=== PATIENT | male | born 1945 | race Caucasian/White ===

== ENCOUNTER 2017-11-03 09:30 | Inpatient (IN) | payer OTHER, MEDICARE ==
[~2017-11-03] VITALS: Ht 171.4 cm; Wt 113.6 kg
[2017-11-03] VITALS (11 sets, daily range): BP systolic 107–167; BP diastolic 65–96
[~2017-11-03 09:30] MED LIST: ASPI-611 PO; CHOL100044 PO; FERR325T32 PO; LEVO150T PO; LISI2.5T2 PO; LORA10TA7 PO; MULT-1085 PO; OMEP20TA5 PO; SIMV10TA6 PO
[2017-11-03 10:16] LABS: POTASSIUM 4.4 MMOL/L (3.5-5.1)
[2017-11-03 10:20] LABS: BASOPHILS # (AUTO) 0.1 X10'3 (0-0.2); BASOPHILS % (AUTO) 0.6 % (0-1); EOSINOPHILS # (AUTO) 0.2 X10'3 (0-0.9); HEMATOCRIT 51.7 % (42.0-52.0); HEMOGLOBIN 16.8 g/dl (14.0-17.9); LYMPHOCYTES # (AUTO) 2.3 X10'3 (1.1-4.8); LYMPHOCYTES % (AUTO) 22.3 % (21-51); MEAN CORPUSCULAR HGB CONC 32.6 % (33.0-36.5); MONOCYTES # (AUTO) 0.7 X10'3 (0-0.9); NEUTROPHILS # (AUTO) 7.2 X10'3 (1.8-7.7); NEUTROPHILS % (AUTO) 68.1 % (42-75); PLATELET COUNT 288 X10'3 (140-440); RED CELL DISTRIBUTION WIDTH 14.8 % (11.5-14.5); WHITE BLOOD COUNT 10.5 X10'3 (4.5-11.0)
[2017-11-03] MEDS ORDERED: heparin 10,000 units/1 ML INJ IV PRN (10:45)
[2017-11-03] MEDS ORDERED: heparin 10,000 units/1 ML INJ IV ONE ×2 (10:45→10:55)
[2017-11-03 10:53] LABS: ALANINE AMINOTRANSFERASE 51 U/L (12-78); MAGNESIUM 1.9 MG/DL (1.5-2.4)
[2017-11-03 11:05] LABS: PARTIAL THROMBOPLASTIN TIME 28 SECONDS (22-32); PROTHROMBIN TIME 10.8 SECONDS (9.0-12.0)
[2017-11-03] MEDS ORDERED: regadenoson 0.4mg/5ml syringe IV ONE (11:20)
[2017-11-03] MEDS ORDERED: aminophylline 250mg/10ml inj. IV PRN (11:20)
[2017-11-03] MEDS ORDERED: HYDROcodone/acetaminophen 10/325mg tab PO PRN ×2 (11:20→18:45)
[2017-11-03] MEDS ORDERED: magnesium 2GM in 50ml NS 50 ML IV PRN (11:20)
[2017-11-03] MEDS ORDERED: metoprolol tartrate 1mg/ml inj IV PRN (11:20)
[2017-11-03] MEDS ORDERED: mag hydrox/Alum hydrox/simeth 30ml oral suspension PO PRN (11:20)
[2017-11-03] MEDS ORDERED: magnesium 4gm in 100ml NS 100 ML IV PRN (11:20)
[2017-11-03] MEDS ORDERED: ondansetron/PF 4mg/2ml inj IV PRN ×2 (11:20→18:45)
[2017-11-03] MEDS ORDERED: magnesium hydroxide 30ml (MOM) UD suspension PO PRN (11:20)
[2017-11-03] MEDS ORDERED: nitroGLYCERIN 0.4mg SUBLingual tab SL PRN ×3 (11:20→18:45)
[2017-11-03] MEDS: K and/or MAG REPLACEMENT MC SCH (11:20)
[2017-11-03] MEDS ORDERED: acetaminophen 325mg tablet PO PRN ×2 (11:20)
[2017-11-03] MEDS ORDERED: potassium Cl 20 mEq SR tablet PO PRN ×2 (11:20)
[2017-11-03] MEDS ORDERED: magnesium Cl slow-release 64mg tablet PO PRN (11:20)
[2017-11-03] MEDS ORDERED: potassium Cl 40MEQ/NS 500ml 500 ML IV PRN ×2 (11:20)
[2017-11-03] MEDS ORDERED: HYDROcodone/acetaminophen 5mg/325mg tablet PO PRN ×2 (11:20→18:45)
[2017-11-03 11:26] LABS: ALBUMIN/GLOBULIN RATIO 1.1 (1.1-1.5)
[2017-11-03 11:27] LABS: CHLORIDE 105 MMOL/L (99-107); GLUCOSE 139 MG/DL (70-104); SODIUM 141 MMOL/L (135-145)
[2017-11-03 11:28] LABS: ALBUMIN 3.9 G/DL (3.4-5.0); ANION GAP 10 (8-16); BILIRUBIN,TOTAL 0.6 MG/DL (0.1-1.0); BLOOD UREA NITROGEN 15 MG/DL (7-18); BUN/CREATININE RATIO 11.8 (5.4-32.0); CALCIUM 9.6 MG/DL (8.5-10.1); CREATININE 1.27 MG/DL (0.60-1.10); TOTAL PROTEIN 7.5 G/DL (6.4-8.2); eGFR 56 ML/MIN
[2017-11-03 11:29] LABS: ALKALINE PHOSPHATASE 80 IU/L (46-116); ASPARTATE AMINO TRANSFERASE 20 U/L (10-37)
[2017-11-03] MEDS: normal saline 1000ml 1,000 ML IV SCH (11:29)
[2017-11-03 11:48] LABS: CHOL/HDL RATIO 7.2 (0.00-4.99); CHOLESTEROL 194 MG/DL (0-200); HDL CHOLESTEROL 27 MG/DL (35-60); LDL CHOLESTEROL 129 MG/DL (50-100); TRIGLYCERIDES 313 MG/DL (20-135)
[2017-11-03] MEDS: metoprolol tartrate 25mg tablet PO SCH ×2 (11:50→18:50)
[2017-11-03] MEDS ORDERED: heparin 1,000 UNITS/NS 500ml 500 ML IV SCH (11:55)
[2017-11-03] MEDS ORDERED: midazolam 2 mg/2 ml injection ONE (16:27)
[2017-11-03] MEDS ORDERED: fentaNYL/PF 50MCG/1 ML 2ML syringe ONE (16:27)
[2017-11-03] MEDS ORDERED: LIDOcaine 1%/PF (10mg/ml) 5ml vial ONE (16:28)
[2017-11-03] MEDS ORDERED: IOHEXOL 350 MG/ML 150 ML injection IV ONE (16:28)
[2017-11-03 17:05] LABS: PARTIAL THROMBOPLASTIN TIME 34 SECONDS (22-32)
[2017-11-03] MEDS ORDERED: proCHLORperazine 10 MG/2 ml inj IV PRN (18:45)
[2017-11-03] MEDS ORDERED: OXAZEpam 15mg capsule PO PRN (18:45)
[2017-11-03] MEDS: nitroGLYCERIN 0.4mg SUBLingual tab SL PRN (19:35)
[2017-11-03] MEDS: lisinopril 2.5mg tablet PO SCH (20:52)
[2017-11-03] MEDS: pantoprazole 40mg Tablet.DR PO SCH (20:52)
[2017-11-03] MEDS: atorvastatin 10mg tablet PO SCH (20:52)
[2017-11-03] MEDS ORDERED: temazepam 15mg capsule PO PRN (21:00)
[2017-11-04] VITALS (12 sets, daily range): BP systolic 96–121; BP diastolic 56–83
[2017-11-04] MEDS ORDERED: albuterol 2.5 MG/3 ML nebule ONE (00:47)
[2017-11-04] MEDS ORDERED: albuterol 2.5 MG/3 ML nebule NEB ONE (00:55)
[2017-11-04 01:20] LABS: ABG BASE EXCESS -2.1 mmol/L (-2.0-3.0); ABG OXYGEN SATURATION 95.5 % (95-98); ABG PCO2 (T) 36.9 mmHg (35.0-48.0); ABG PH (T) 7.396 (7.350-7.450); ABG PO2 (T) 79.3 mmHg (83-108); ALLEN'S TEST Positive; FCOHb 1.1 % (0.5-1.5); FMetHb 0.2 % (0.3-1.12); FO2Hb 94.3 % (94-100); PATIENT TEMPERATURE 37.3; RESPIRATORY RATE (OBSERVED) 16 b/min
[2017-11-04] MEDS: normal saline 1000ml 1,000 ML IV SCH ×2 (01:34→03:53)
[2017-11-04] MEDS: nitroGLYCERIN 0.4mg SUBLingual tab SL PRN ×3 (02:08→17:23)
[2017-11-04 02:58] LABS: HEMATOCRIT 48.7 % (42.0-52.0); HEMOGLOBIN 15.4 g/dl (14.0-17.9); MEAN CORPUSCULAR HEMOGLOBIN 27.6 PG (27.0-31.0); MEAN CORPUSCULAR HGB CONC 31.7 % (33.0-36.5); MEAN PLATELET VOLUME 8.5 FL (7.4-10.4); PLATELET COUNT 244 X10'3 (140-440); RED BLOOD COUNT 5.59 X10'6 (4.70-6.10); RED CELL DISTRIBUTION WIDTH 14.6 % (11.5-14.5); WHITE BLOOD COUNT 11.5 X10'3 (4.5-11.0)
[2017-11-04 03:10] LABS: ALBUMIN 3.5 G/DL (3.4-5.0); ANION GAP 10 (8-16); BLOOD UREA NITROGEN 17 MG/DL (7-18); BUN/CREATININE RATIO 16.8 (5.4-32.0); CALCIUM 8.5 MG/DL (8.5-10.1); CHLORIDE 104 MMOL/L (99-107); CREATININE 1.01 MG/DL (0.60-1.10); GLUCOSE 110 MG/DL (70-104); MAGNESIUM 1.7 MG/DL (1.5-2.4); POTASSIUM 4.2 MMOL/L (3.5-5.1); SODIUM 139 MMOL/L (135-145); eGFR 73 ML/MIN
[2017-11-04 03:11] LABS: TROPONIN I 0.84 NG/ML (0.0-0.05)
[2017-11-04] MEDS: K and/or MAG REPLACEMENT MC SCH (06:43)
[2017-11-04] MEDS ORDERED: enoxaparin 40mg/0.4ml syringe SQ SCH (08:00)
[2017-11-04] MEDS ORDERED: aspirin 81mg tab.chew PO SCH (08:30)
[2017-11-04] MEDS ORDERED: aspirin 325mg tablet PO SCH (08:30)
[2017-11-04] MEDS ORDERED: MESSAGE TO NURSING PO ONE ×3 (09:05)
[2017-11-04] MEDS: levoTHYROXINE 75mcg tablet PO SCH (10:01)
[2017-11-04] MEDS: metoprolol tartrate 25mg tablet PO SCH ×2 (10:01→20:00)
[2017-11-04 17:05] LABS: TROPONIN I 0.85 NG/ML (0.0-0.05)
[2017-11-04] MEDS ORDERED: nitroGLYCERIN-Tridil 50MG/D5W 250 ML IV SCH (17:30)
[2017-11-04 19:20] LABS: MAGNESIUM 1.9 MG/DL (1.5-2.4); POTASSIUM 4.7 MMOL/L (3.5-5.1)
[2017-11-04] MEDS ORDERED: ceFAZolin inj. 3,000 MG in normal saline 100ml IV soln 100 ML IV ONE (19:44)
[2017-11-04] MEDS ORDERED: famotidine/PF 10 mg/ml inj IV ONE (19:45)
[2017-11-04] MEDS ORDERED: LORazepam 2 mg/ml vial IV ONE (19:45)
[2017-11-04] MEDS ORDERED: MIDAZolam 1mg/ml 10ml vial ONE (19:50)
[2017-11-04] MEDS ORDERED: SUFENTANIL CITRATE 50 MCG/ML 2ml ampule IV ONE (19:51)
[2017-11-04] MEDS ORDERED: LIDOcaine 2% (20mg/ml) 5ml vial ONE (19:55)
[2017-11-04] MEDS ORDERED: rocuronium 10mg/ml inj IV ONE (19:55)
[2017-11-04] MEDS ORDERED: etomidate 2mg/ml inj. ONE (19:55)
[2017-11-04] MEDS: insulin regular, human inj. 100 UNITS in normal saline 100ml IV soln 100 ML IV SCH ×2 (20:07)
[2017-11-04] MEDS: atorvastatin 10mg tablet PO SCH (21:00)
[2017-11-04] MEDS: pantoprazole 40mg Tablet.DR PO SCH (21:00)
[2017-11-04] MEDS: lisinopril 2.5mg tablet PO SCH (21:00)
[2017-11-04 21:20] LABS: ABG BASE EXCESS -1.6 mmol/L (-2.0-3.0); ABG OXYGEN SATURATION 99.6 % (95-98); ABG PCO2 38.7 mmHg (35.0-45.0); ABG PH 7.392 (7.350-7.450); ABG PO2 377.3 mmHg (60.0-100.0); CL (ABG) 103 mmol/L (99-107); FCOHb 0.7 % (0.5-1.5); FMetHb 0.4 % (0.3-1.12); FO2Hb 98.5 % (94-100); GLUCOSE (ABG) 106 mg/dl (70-105); IONIZED CA (ABG) 1.15 mmol/L (1.03-1.32); K (ABG) 4.3 mmol/L (3.3-5.1); NA (ABG) 135 mmol/L (135-145); TOTAL HEMOGLOBIN 14.7 G/dl (14.0-18.0)
[2017-11-04] MEDS ORDERED: tranexamic acid inj. 1,000 MG in normal saline 100ml IV soln 90 ML IV ONE (21:20)
[2017-11-04] MEDS ORDERED: tranexamic acid 100mg/ml inj. ONE (21:37)
[2017-11-04] MEDS ORDERED: heparin 10,000 units/1 ML INJ IR ONE (22:11)
[2017-11-04] MEDS ORDERED: papaverine 30 mg/ml 2ml inj. IA ONE (22:13)
[2017-11-04 22:31] LABS: ABG BASE EXCESS VENOUS -2.6 mmol/L; ABG HCO3 VENOUS 23.4 mmol/L; ABG PCO2 VENOUS 45.2 mmHg; ABG PO2 VENOUS 44.5 mmHg; CL (ABG) 103 mmol/L (99-107); FHHb VENOUS 21.5 %; FMetHb VENOUS 0.3 %; FO2Hb VENOUS 77.2 %; GLUCOSE (ABG) 122 mg/dl (70-105); IONIZED CA (ABG) 1.13 mmol/L (1.03-1.32); K (ABG) 4.4 mmol/L (3.3-5.1); NA (ABG) 137 mmol/L (135-145)
[2017-11-04 23:15] LABS: ABG BASE EXCESS -1.5 mmol/L (-2.0-3.0); ABG HCO3 22.6 mmol/L (22.0-26.0); ABG OXYGEN SATURATION 99.4 % (95-98); ABG PCO2 36.2 mmHg (35.0-45.0); ABG PH 7.414 (7.350-7.450); ABG PO2 378.1 mmHg (60.0-100.0); CL (ABG) 105 mmol/L (99-107); FCOHb 0.3 % (0.5-1.5); FMetHb 0.3 % (0.3-1.12); FO2Hb 98.8 % (94-100); GLUCOSE (ABG) 130 mg/dl (70-105); IONIZED CA (ABG) 1.02 mmol/L (1.03-1.32); K (ABG) 4.5 mmol/L (3.3-5.1); NA (ABG) 133 mmol/L (135-145); TOTAL HEMOGLOBIN 11.2 G/dl (14.0-18.0)
[2017-11-04 23:31] LABS: ABG BASE EXCESS VENOUS -2.9 mmol/L; ABG HCO3 VENOUS 21.4 mmol/L; ABG PCO2 VENOUS 35.2 mmHg; ABG PO2 VENOUS 55.8 mmHg; CL (ABG) 103 mmol/L (99-107); FCOHb VENOUS 0.4 %; FHHb VENOUS 10.8 %; FMetHb VENOUS 0.4 %; FO2Hb VENOUS 88.4 %; GLUCOSE (ABG) 129 mg/dl (70-105); IONIZED CA (ABG) 1.05 mmol/L (1.03-1.32); K (ABG) 4.7 mmol/L (3.3-5.1); NA (ABG) 133 mmol/L (135-145); TOTAL HEMOGLOBIN 11.2 G/dl (14.0-18.0)
[2017-11-05] VITALS (26 sets, daily range): BP systolic 102–138; BP diastolic 32–75
[2017-11-05 00:01] LABS: ABG BASE EXCESS -1.3 mmol/L (-2.0-3.0); ABG HCO3 22.6 mmol/L (22.0-26.0); ABG OXYGEN SATURATION 98.4 % (95-98); ABG PCO2 35.1 mmHg (35.0-45.0); ABG PH 7.427 (7.350-7.450); ABG PO2 139.1 mmHg (60.0-100.0); CL (ABG) 103 mmol/L (99-107); FCOHb 0.1 % (0.5-1.5); FMetHb 0.5 % (0.3-1.12); FO2Hb 97.8 % (94-100); GLUCOSE (ABG) 157 mg/dl (70-105); IONIZED CA (ABG) 1.04 mmol/L (1.03-1.32); NA (ABG) 133 mmol/L (135-145); TOTAL HEMOGLOBIN 11.1 G/dl (14.0-18.0)
[2017-11-05 00:46] LABS: ABG HCO3 VENOUS 26.1 mmol/L; ABG PCO2 VENOUS 54.1 mmHg; ABG PO2 VENOUS 53.2 mmHg; CL (ABG) 106 mmol/L (99-107); FCOHb VENOUS 0.4 %; FHHb VENOUS 15.8 %; FMetHb VENOUS 0.5 %; FO2Hb VENOUS 83.3 %; GLUCOSE (ABG) 137 mg/dl (70-105); IONIZED CA (ABG) 1.65 mmol/L (1.03-1.32); K (ABG) 4.3 mmol/L (3.3-5.1); NA (ABG) 136 mmol/L (135-145); TOTAL HEMOGLOBIN 12.4 G/dl (14.0-18.0)
[2017-11-05] MEDS ORDERED: DOPamine 400mg/D5W 250ml 250 ML IV PRN (01:47)
[2017-11-05] MEDS ORDERED: niCARDipine/sod cl 20mg/200ml 200 ML IV PRN (01:47)
[2017-11-05] MEDS ORDERED: nitroGLYCERIN-Tridil 50MG/D5W 250 ML IV PRN (01:47)
[2017-11-05] MEDS ORDERED: ondansetron/PF 4mg/2ml inj IV PRN (01:50)
[2017-11-05] MEDS ORDERED: dextrose 50%-water 50ml dispensing syringe IV PRN (01:50)
[2017-11-05] MEDS ORDERED: metoclopramide 5 mg/ml inj IV PRN (01:50)
[2017-11-05] MEDS ORDERED: insulin regular, human inj. 100 UNITS in normal saline 100ml IV soln 100 ML IV SCH ×2 (01:50)
[2017-11-05] MEDS ORDERED: potassium Cl 20mEq/100mL bag 100 ML IV PRN ×2 (01:50)
[2017-11-05] MEDS ORDERED: normal saline 250ml IV soln 250 ML IV PRN (01:50)
[2017-11-05] MEDS ORDERED: sodium phosphate inj. 30 MMOL in dextrose 5%-water 250 ML IV PRN (01:50)
[2017-11-05] MEDS ORDERED: sodium phosphate inj. 15 MMOL in dextrose 5%-water 150 ML IV PRN (01:50)
[2017-11-05] MEDS ORDERED: epiNEPHrine inj 5 MG, calcium chloride inj. 1,000 MG in normal saline 250ml IV soln 250 ML IV SCH (01:50)
[2017-11-05] MEDS ORDERED: Neutra Phos packet PO PRN (01:50)
[2017-11-05] MEDS ORDERED: acetaminophen 325mg tablet PO PRN (01:50)
[2017-11-05] MEDS ORDERED: magnesium hydroxide 30ml (MOM) UD suspension PO PRN (01:50)
[2017-11-05] MEDS ORDERED: propofol 1000mg/100ml bottle 100 ML IV ONE (02:17)
[2017-11-05 02:33] LABS: BASOPHILS # (AUTO) 0.1 X10'3 (0-0.2); BASOPHILS % (AUTO) 0.2 % (0-1); EOSINOPHILS # (AUTO) 0.7 X10'3 (0-0.9); EOSINOPHILS % (AUTO) 2.4 % (0-6); HEMOGLOBIN 13.6 g/dl (14.0-17.9); LYMPHOCYTES # (AUTO) 2.7 X10'3 (1.1-4.8); LYMPHOCYTES % (AUTO) 9.8 % (21-51); MEAN CORPUSCULAR HEMOGLOBIN 28.7 PG (27.0-31.0); MEAN CORPUSCULAR HGB CONC 33.2 % (33.0-36.5); MEAN CORPUSCULAR VOLUME 86.6 FL (78-98); MEAN PLATELET VOLUME 7.4 FL (7.4-10.4); MONOCYTES # (AUTO) 1.3 X10'3 (0-0.9); MONOCYTES % (AUTO) 4.5 % (2-12); NEUTROPHILS % (AUTO) 83.1 % (42-75); PLATELET COUNT 281 X10'3 (140-440); RED BLOOD COUNT 4.73 X10'6 (4.70-6.10); RED CELL DISTRIBUTION WIDTH 14.6 % (11.5-14.5)
[2017-11-05] MEDS ORDERED: phenylephrine 10mg/ml inj IV ONE (02:33)
[2017-11-05] MEDS ORDERED: epiNEPHrine 0.1mg/ml 10ml syringe ONE (02:33)
[2017-11-05] MEDS ORDERED: rocuronium 10mg/ml inj IV ONE (02:34)
[2017-11-05 02:35] LABS: WHITE BLOOD COUNT 27.7 X10'3 (4.5-11.0)
[2017-11-05 02:41] LABS: ABG BASE EXCESS -5.1 mmol/L (-2.0-3.0); ABG HCO3 21.9 mmol/L (22.0-26.0); ABG PCO2 (T) 46.2 mmHg (35.0-48.0); ABG PH (T) 7.289 (7.350-7.450); ABG PO2 (T) 195.2 mmHg (83-108); FCOHb 0.3 % (0.5-1.5); FMetHb 0.3 % (0.3-1.12); FO2Hb 98.4 % (94-100); MINUTE VOLUME 10 L/min; PEEP 5 cm H2O; RESPIRATORY RATE 12 b/min; RESPIRATORY RATE (OBSERVED) 12 b/min; TIDAL VOLUME 750 mL; TOTAL HEMOGLOBIN 14.3 G/dl (14.0-18.0)
[2017-11-05] MEDS: insulin regular, human inj. 100 UNITS in normal saline 100ml IV soln 100 ML IV SCH ×10 (02:59→21:22)
[2017-11-05 03:03] LABS: TOTAL CELLS COUNTED 100
[2017-11-05 03:07] LABS: PLATELET ESTIMATE NORMAL
[2017-11-05] MEDS: sodium chloride 0.45% 1,000 ML IV SCH ×2 (05:24→05:59)
[2017-11-05 06:35] LABS: PARTIAL THROMBOPLASTIN TIME 27 SECONDS (22-32); PROTHROMBIN TIME 10.7 SECONDS (9.0-12.0)
[2017-11-05 06:43] LABS: ALANINE AMINOTRANSFERASE 77 U/L (12-78); ALBUMIN 3.4 G/DL (3.4-5.0); ALBUMIN/GLOBULIN RATIO 1.3 (1.1-1.5); ALKALINE PHOSPHATASE 60 IU/L (46-116); ANION GAP 11 (8-16); ASPARTATE AMINO TRANSFERASE 97 U/L (10-37); BILIRUBIN,TOTAL 1.8 MG/DL (0.1-1.0); BLOOD UREA NITROGEN 17 MG/DL (7-18); BUN/CREATININE RATIO 13.6 (5.4-32.0); CALCIUM 9.6 MG/DL (8.5-10.1); CHLORIDE 105 MMOL/L (99-107); CREATININE 1.25 MG/DL (0.60-1.10); GLUCOSE 164 MG/DL (70-104); MAGNESIUM 2.7 MG/DL (1.5-2.4); PHOSPHORUS 1.7 MG/DL (2.3-4.5); POTASSIUM 3.7 MMOL/L (3.5-5.1); SODIUM 141 MMOL/L (135-145); TOTAL CARBON DIOXIDE 24.7 MMOL/L (24-32); TOTAL PROTEIN 6.1 G/DL (6.4-8.2); eGFR 57 ML/MIN
[2017-11-05 06:51] LABS: BASOPHILS % (AUTO) 0 % (0-1); EOSINOPHILS # (AUTO) 0.3 X10'3 (0-0.9); HEMOGLOBIN 13.7 g/dl (14.0-17.9); LYMPHOCYTES # (AUTO) 0.8 X10'3 (1.1-4.8); MEAN CORPUSCULAR HEMOGLOBIN 28.9 PG (27.0-31.0); MEAN CORPUSCULAR HGB CONC 33.5 % (33.0-36.5); MEAN CORPUSCULAR VOLUME 86.2 FL (78-98); MEAN PLATELET VOLUME 8.6 FL (7.4-10.4); MONOCYTES # (AUTO) 0.8 X10'3 (0-0.9); MONOCYTES % (AUTO) 5.3 % (2-12); NEUTROPHILS # (AUTO) 13.4 X10'3 (1.8-7.7); NEUTROPHILS % (AUTO) 87.7 % (42-75); PLATELET COUNT 219 X10'3 (140-440); RED BLOOD COUNT 4.75 X10'6 (4.70-6.10); RED CELL DISTRIBUTION WIDTH 14.7 % (11.5-14.5); WHITE BLOOD COUNT 15.2 X10'3 (4.5-11.0)
[2017-11-05] MEDS: ipratropium/albuterol 3ml nebule IH PRN ×2 (07:51→11:48)
[2017-11-05] MEDS: propofol 1000mg/100ml bottle 100 ML IV PRN ×3 (07:56→22:20)
[2017-11-05] MEDS: albumin (Human) 5% 250ml 250 ML IV PRN ×2 (07:57→10:59)
[2017-11-05] MEDS: docusate sod 100mg capsule PO SCH ×2 (08:00→20:00)
[2017-11-05] MEDS: ceFAZolin 2gm in dextrose, iso 100 ML IV SCH ×2 (08:44→16:19)
[2017-11-05] MEDS: vancomycin/NS 1 GM ADD-VANTAGE 250 ML IV SCH ×2 (08:44→20:04)
[2017-11-05] MEDS: pantoprazole 40mg Tablet.DR PO SCH (08:45)
[2017-11-05] MEDS: aspirin 325mg tablet, delayed-release (Ecotrin) PO SCH (08:45)
[2017-11-05] MEDS: levoTHYROXINE 75mcg tablet PO SCH (08:45)
[2017-11-05] MEDS: insulin Lispro (HumaLOG) vial - multi-dose SQ SCH ×3 (09:00→16:16)
[2017-11-05] MEDS: potassium Cl 20mEq/100mL bag 100 ML IV PRN ×3 (09:53→15:39)
[2017-11-05] MEDS: mupirocin 2% ointment 22GM NS SCH ×2 (09:57→20:04)
[2017-11-05] MEDS ORDERED: DOBUTamine-DoBUTrex 500mg/D5W 250 ML IV ONE (10:25)
[2017-11-05] MEDS: DOBUTamine-DoBUTrex 500mg/D5W 250 ML IV PRN (10:59)
[2017-11-05 11:25] LABS: ABG BASE EXCESS 0.1 mmol/L (-2.0-3.0); ABG OXYGEN SATURATION 95.4 % (95-98); ABG PCO2 (T) 30.6 mmHg (35.0-48.0); ABG PH (T) 7.489 (7.350-7.450); FCOHb 0.7 % (0.5-1.5); FO2Hb 94.7 % (94-100); PEEP 5 cm H2O; RESPIRATORY RATE 16 b/min; TIDAL VOLUME 750 mL; TOTAL HEMOGLOBIN 13.1 G/dl (14.0-18.0)
[2017-11-05 13:11] LABS: BASOPHILS % (AUTO) 0 % (0-1); EOSINOPHILS # (AUTO) 0.2 X10'3 (0-0.9); EOSINOPHILS % (AUTO) 1.5 % (0-6); HEMATOCRIT 36.2 % (42.0-52.0); LYMPHOCYTES # (AUTO) 0.5 X10'3 (1.1-4.8); LYMPHOCYTES % (AUTO) 3.5 % (21-51); MEAN CORPUSCULAR HEMOGLOBIN 28.7 PG (27.0-31.0); MEAN CORPUSCULAR HGB CONC 33.1 % (33.0-36.5); MEAN CORPUSCULAR VOLUME 86.6 FL (78-98); MEAN PLATELET VOLUME 7.8 FL (7.4-10.4); MONOCYTES # (AUTO) 0.6 X10'3 (0-0.9); MONOCYTES % (AUTO) 4.6 % (2-12); NEUTROPHILS # (AUTO) 12.2 X10'3 (1.8-7.7); NEUTROPHILS % (AUTO) 90.4 % (42-75); PLATELET COUNT 201 X10'3 (140-440); RED BLOOD COUNT 4.18 X10'6 (4.70-6.10); RED CELL DISTRIBUTION WIDTH 14.2 % (11.5-14.5); WHITE BLOOD COUNT 13.6 X10'3 (4.5-11.0)
[2017-11-05] MEDS ORDERED: amiodarone inj. 450 MG in dextrose 5%-water 241 ML IV SCH (13:20)
[2017-11-05] MEDS ORDERED: amiodarone 150mg/dext, iso-os 100 ML IV ONE (13:20)
[2017-11-05 13:21] LABS: ALBUMIN 3.5 G/DL (3.4-5.0); ANION GAP 7 (8-16); BLOOD UREA NITROGEN 17 MG/DL (7-18); BUN/CREATININE RATIO 17.2 (5.4-32.0); CALCIUM 8.6 MG/DL (8.5-10.1); CHLORIDE 107 MMOL/L (99-107); CREATININE 0.99 MG/DL (0.60-1.10); GLUCOSE 148 MG/DL (70-104); SODIUM 141 MMOL/L (135-145); TOTAL CARBON DIOXIDE 27.5 MMOL/L (24-32); eGFR 75 ML/MIN
[2017-11-05] MEDS: magnesium 4gm in 100ml NS 100 ML IV PRN (13:31)
[2017-11-05] MEDS: amiodarone/D5 450MG/250ML BAG 250 ML IV SCH ×2 (14:11→21:20)
[2017-11-05 17:46] LABS: BASOPHILS % (AUTO) 0.2 % (0-1); EOSINOPHILS # (AUTO) 0.3 X10'3 (0-0.9); EOSINOPHILS % (AUTO) 1.5 % (0-6); HEMATOCRIT 36.7 % (42.0-52.0); HEMOGLOBIN 12.3 g/dl (14.0-17.9); LYMPHOCYTES # (AUTO) 0.7 X10'3 (1.1-4.8); LYMPHOCYTES % (AUTO) 3.6 % (21-51); MEAN CORPUSCULAR HEMOGLOBIN 28.7 PG (27.0-31.0); MEAN CORPUSCULAR HGB CONC 33.4 % (33.0-36.5); MEAN CORPUSCULAR VOLUME 85.8 FL (78-98); MEAN PLATELET VOLUME 7.6 FL (7.4-10.4); MONOCYTES # (AUTO) 0.8 X10'3 (0-0.9); MONOCYTES % (AUTO) 4.2 % (2-12); NEUTROPHILS % (AUTO) 90.5 % (42-75); PLATELET COUNT 212 X10'3 (140-440); RED BLOOD COUNT 4.27 X10'6 (4.70-6.10); RED CELL DISTRIBUTION WIDTH 14.4 % (11.5-14.5); WHITE BLOOD COUNT 18.7 X10'3 (4.5-11.0)
[2017-11-05 18:00] LABS: ALBUMIN 3.4 G/DL (3.4-5.0); ANION GAP 7 (8-16); BLOOD UREA NITROGEN 15 MG/DL (7-18); BUN/CREATININE RATIO 15.2 (5.4-32.0); CALCIUM 8.3 MG/DL (8.5-10.1); CHLORIDE 107 MMOL/L (99-107); CREATININE 0.99 MG/DL (0.60-1.10); GLUCOSE 141 MG/DL (70-104); MAGNESIUM 3.2 MG/DL (1.5-2.4); PHOSPHORUS 3.9 MG/DL (2.3-4.5); POTASSIUM 4.6 MMOL/L (3.5-5.1); SODIUM 139 MMOL/L (135-145); eGFR 75 ML/MIN
[2017-11-06] VITALS (24 sets, daily range): BP systolic 97–134; BP diastolic 34–55
[2017-11-06] MEDS: propofol 1000mg/100ml bottle 100 ML IV PRN ×2 (03:24→07:41)
[2017-11-06 03:34] LABS: BASOPHILS % (AUTO) 0 % (0-1); EOSINOPHILS # (AUTO) 0.4 X10'3 (0-0.9); EOSINOPHILS % (AUTO) 1.6 % (0-6); HEMATOCRIT 36.1 % (42.0-52.0); LYMPHOCYTES # (AUTO) 1.2 X10'3 (1.1-4.8); LYMPHOCYTES % (AUTO) 5.3 % (21-51); MEAN CORPUSCULAR HEMOGLOBIN 28.8 PG (27.0-31.0); MEAN CORPUSCULAR HGB CONC 33.3 % (33.0-36.5); MEAN CORPUSCULAR VOLUME 86.6 FL (78-98); MEAN PLATELET VOLUME 8.3 FL (7.4-10.4); MONOCYTES # (AUTO) 1.3 X10'3 (0-0.9); MONOCYTES % (AUTO) 5.9 % (2-12); NEUTROPHILS # (AUTO) 19.8 X10'3 (1.8-7.7); NEUTROPHILS % (AUTO) 87.2 % (42-75); PLATELET COUNT 204 X10'3 (140-440); RED BLOOD COUNT 4.18 X10'6 (4.70-6.10); WHITE BLOOD COUNT 22.7 X10'3 (4.5-11.0)
[2017-11-06 04:05] LABS: ABG BASE EXCESS -1.7 mmol/L (-2.0-3.0); ABG HCO3 22.1 mmol/L (22.0-26.0); ABG OXYGEN SATURATION 98.6 % (95-98); ABG PCO2 (T) 34.2 mmHg (35.0-48.0); ABG PH (T) 7.427 (7.350-7.450); ABG PO2 (T) 143.9 mmHg (83-108); FCOHb 0.3 % (0.5-1.5); FMetHb 0.1 % (0.3-1.12); FO2Hb 98.2 % (94-100); MINUTE VOLUME 10 L/min; PATIENT TEMPERATURE 36.9; PEEP 5 cm H2O; RESPIRATORY RATE 14 b/min; RESPIRATORY RATE (OBSERVED) 14 b/min; TIDAL VOLUME 700 mL; TOTAL HEMOGLOBIN 12.6 G/dl (14.0-18.0)
[2017-11-06 04:22] LABS: ALANINE AMINOTRANSFERASE 84 U/L (12-78); ALBUMIN 3.3 G/DL (3.4-5.0); ALBUMIN/GLOBULIN RATIO 1.2 (1.1-1.5); ALKALINE PHOSPHATASE 51 IU/L (46-116); ANION GAP 8 (8-16); ASPARTATE AMINO TRANSFERASE 322 U/L (10-37); BILIRUBIN,TOTAL 0.5 MG/DL (0.1-1.0); BLOOD UREA NITROGEN 15 MG/DL (7-18); CALCIUM 8.3 MG/DL (8.5-10.1); CHLORIDE 107 MMOL/L (99-107); GLUCOSE 142 MG/DL (70-104); MAGNESIUM 2.6 MG/DL (1.5-2.4); PHOSPHORUS 4.7 MG/DL (2.3-4.5); SODIUM 139 MMOL/L (135-145); TOTAL CARBON DIOXIDE 23.9 MMOL/L (24-32); eGFR 74 ML/MIN
[2017-11-06 05:02] LABS: PARTIAL THROMBOPLASTIN TIME 28 SECONDS (22-32); PROTHROMBIN TIME 10.5 SECONDS (9.0-12.0)
[2017-11-06 05:45] LABS: TOTAL CELLS COUNTED 100
[2017-11-06 05:46] LABS: PLATELET ESTIMATE NORMAL
[2017-11-06] MEDS: amiodarone/D5 450MG/250ML BAG 250 ML IV SCH (06:56)
[2017-11-06] MEDS ORDERED: LACTOBACILLUS RHAMNOSUS GG 15 billion unit sprinkle caps PO SCH (07:30)
[2017-11-06] MEDS: albuterol 2.5 MG/3 ML nebule NEB PRN (07:35)
[2017-11-06] MEDS ORDERED: mupirocin 2% ointment 22GM NS SCH (08:00)
[2017-11-06] MEDS: metoprolol tartrate 12.5mg (1/2 tablet) PO SCH ×2 (08:00→20:13)
[2017-11-06] MEDS: docusate sod 100mg capsule PO SCH ×2 (08:00→20:12)
[2017-11-06] MEDS: pantoprazole 40mg Tablet.DR PO SCH (08:03)
[2017-11-06] MEDS: vancomycin/NS 1 GM ADD-VANTAGE 250 ML IV SCH (08:03)
[2017-11-06] MEDS: aspirin 325mg tablet, delayed-release (Ecotrin) PO SCH (08:03)
[2017-11-06] MEDS: levoTHYROXINE 75mcg tablet PO SCH (08:03)
[2017-11-06] MEDS: mupirocin 2% ointment 22GM NS SCH ×2 (08:04→20:15)
[2017-11-06] MEDS: atorvastatin 10mg tablet PO SCH (08:08)
[2017-11-06] MEDS: ceFAZolin 2gm in dextrose, iso 100 ML IV SCH ×3 (08:25→15:52)
[2017-11-06] MEDS: insulin Lispro (HumaLOG) vial - multi-dose SQ SCH ×3 (09:00→18:00)
[2017-11-06] MEDS ORDERED: furosemide 20 MG/2 ML vial IV ONE (09:55)
[2017-11-06] MEDS: HYDROcodone/acetaminophen 10/325mg tab PO PRN ×3 (15:52→22:45)
[2017-11-06] MEDS: insulin regular, human inj. 100 UNITS in normal saline 100ml IV soln 100 ML IV SCH ×6 (17:27→20:24)
[2017-11-06] MEDS: DOBUTamine-DoBUTrex 500mg/D5W 250 ML IV PRN (19:23)
[2017-11-07] VITALS (24 sets, daily range): BP systolic 97–134; BP diastolic 38–70
[2017-11-07] MEDS: sodium chloride 0.45% 1,000 ML IV SCH ×2 (01:47→17:05)
[2017-11-07] MEDS: insulin regular, human inj. 100 UNITS in normal saline 100ml IV soln 100 ML IV SCH ×4 (02:28→03:16)
[2017-11-07 02:44] LABS: BASOPHILS % (AUTO) 0.2 % (0-1); EOSINOPHILS % (AUTO) 0.1 % (0-6); HEMATOCRIT 34.8 % (42.0-52.0); HEMOGLOBIN 11.5 g/dl (14.0-17.9); LYMPHOCYTES # (AUTO) 1.7 X10'3 (1.1-4.8); LYMPHOCYTES % (AUTO) 8.6 % (21-51); MEAN CORPUSCULAR HEMOGLOBIN 28.7 PG (27.0-31.0); MEAN CORPUSCULAR HGB CONC 32.9 % (33.0-36.5); MEAN PLATELET VOLUME 8.6 FL (7.4-10.4); MONOCYTES # (AUTO) 1.5 X10'3 (0-0.9); MONOCYTES % (AUTO) 7.6 % (2-12); NEUTROPHILS # (AUTO) 16.6 X10'3 (1.8-7.7); NEUTROPHILS % (AUTO) 83.5 % (42-75); PLATELET COUNT 166 X10'3 (140-440); RED CELL DISTRIBUTION WIDTH 15.3 % (11.5-14.5); WHITE BLOOD COUNT 19.9 X10'3 (4.5-11.0)
[2017-11-07 03:01] LABS: ANION GAP 11 (8-16); BLOOD UREA NITROGEN 26 MG/DL (7-18); BUN/CREATININE RATIO 20.3 (5.4-32.0); CHLORIDE 103 MMOL/L (99-107); CREATININE 1.28 MG/DL (0.60-1.10); GLUCOSE 139 MG/DL (70-104); POTASSIUM 5.2 MMOL/L (3.5-5.1); SODIUM 138 MMOL/L (135-145); TOTAL CARBON DIOXIDE 23.8 MMOL/L (24-32)
[2017-11-07 03:02] LABS: ALBUMIN 3.1 G/DL (3.4-5.0); CALCIUM 8.2 MG/DL (8.5-10.1); MAGNESIUM 2.2 MG/DL (1.5-2.4); PHOSPHORUS 4.5 MG/DL (2.3-4.5); eGFR 56 ML/MIN
[2017-11-07] MEDS ORDERED: MESSAGE TO NURSING PO NR (04:00)
[2017-11-07] MEDS: HYDROcodone/acetaminophen 10/325mg tab PO PRN ×4 (04:01→23:28)
[2017-11-07] MEDS: magnesium 2GM in 50ml NS 50 ML IV PRN ×2 (04:28→17:05)
[2017-11-07 05:15] LABS: PLATELET ESTIMATE NORMAL; TOTAL CELLS COUNTED 100
[2017-11-07 05:26] LABS: ACTIVATED CLOTTING TIME 135 SEC (101-148)
[2017-11-07 05:26] LABS: ACT @ 1.70 U 298 SEC (193-297); ACT @ 2.84 U 435 SEC (260-420); BASELINE ACT 168 SEC (101-148)
[2017-11-07] MEDS ORDERED: insulin regular, human inj. 100 UNITS in normal saline 100ml IV soln 100 ML IV SCH ×2 (05:30)
[2017-11-07] MEDS ORDERED: ceFAZolin inj. 3,000 MG in normal saline 100ml IV soln 100 ML IV ONE (05:30)
[2017-11-07] MEDS: levoTHYROXINE 75mcg tablet PO SCH (07:55)
[2017-11-07] MEDS: docusate sod 100mg capsule PO SCH ×2 (07:56→19:59)
[2017-11-07] MEDS: atorvastatin 10mg tablet PO SCH (07:56)
[2017-11-07] MEDS: aspirin 325mg tablet, delayed-release (Ecotrin) PO SCH (07:56)
[2017-11-07] MEDS: metoprolol tartrate 12.5mg (1/2 tablet) PO SCH ×2 (07:57→19:58)
[2017-11-07] MEDS: pantoprazole 40mg Tablet.DR PO SCH (07:57)
[2017-11-07] MEDS: albuterol 2.5 MG/3 ML nebule NEB PRN ×2 (08:08→19:16)
[2017-11-07] MEDS: insulin Lispro (HumaLOG) vial - multi-dose SQ SCH (08:39)
[2017-11-07] MEDS ORDERED: insulin Lispro (HumaLOG) vial - multi-dose SQ SCH (09:00)
[2017-11-07] MEDS ORDERED: dextrose 50%-water 50ml dispensing syringe IV PRN (09:05)
[2017-11-07] MEDS ORDERED: furosemide 40mg/4ml inj IV ONE ×2 (09:10→16:00)
[2017-11-07] MEDS: amiodarone 200mg tablet PO SCH ×2 (09:24→19:59)
[2017-11-07] MEDS ORDERED: Protein Shake (high protein) 240ml (8oz) cup PO SCH (13:00)
[2017-11-07] MEDS: Protein Smoothie (high protein) 240ml (8oz) cup PO SCH ×2 (13:31→18:49)
[2017-11-07 16:32] LABS: ANION GAP 8 (8-16); BLOOD UREA NITROGEN 27 MG/DL (7-18); BUN/CREATININE RATIO 24.1 (5.4-32.0); CALCIUM 8.8 MG/DL (8.5-10.1); CHLORIDE 101 MMOL/L (99-107); CREATININE 1.12 MG/DL (0.60-1.10); GLUCOSE 160 MG/DL (70-104); MAGNESIUM 2.2 MG/DL (1.5-2.4); PHOSPHORUS 4.2 MG/DL (2.3-4.5); POTASSIUM 5.4 MMOL/L (3.5-5.1); SODIUM 137 MMOL/L (135-145); TOTAL CARBON DIOXIDE 27.9 MMOL/L (24-32); eGFR 65 ML/MIN
[2017-11-07 22:02] LABS: MAGNESIUM 2.5 MG/DL (1.5-2.4); POTASSIUM 4.9 MMOL/L (3.5-5.1)
[2017-11-08] VITALS (24 sets, daily range): BP systolic 91–129; BP diastolic 54–74
[2017-11-08 02:38] LABS: BASOPHILS % (AUTO) 0.2 % (0-1); EOSINOPHILS # (AUTO) 0.3 X10'3 (0-0.9); EOSINOPHILS % (AUTO) 1.4 % (0-6); HEMOGLOBIN 11.2 g/dl (14.0-17.9); LYMPHOCYTES # (AUTO) 1.6 X10'3 (1.1-4.8); LYMPHOCYTES % (AUTO) 8.9 % (21-51); MEAN CORPUSCULAR HEMOGLOBIN 28.6 PG (27.0-31.0); MEAN CORPUSCULAR VOLUME 86.5 FL (78-98); MEAN PLATELET VOLUME 8.7 FL (7.4-10.4); MONOCYTES # (AUTO) 1.5 X10'3 (0-0.9); MONOCYTES % (AUTO) 8.6 % (2-12); NEUTROPHILS # (AUTO) 14.5 X10'3 (1.8-7.7); NEUTROPHILS % (AUTO) 80.9 % (42-75); PLATELET COUNT 162 X10'3 (140-440); RED BLOOD COUNT 3.93 X10'6 (4.70-6.10); RED CELL DISTRIBUTION WIDTH 14.8 % (11.5-14.5); WHITE BLOOD COUNT 17.9 X10'3 (4.5-11.0)
[2017-11-08 02:54] LABS: ALBUMIN 2.9 G/DL (3.4-5.0); ANION GAP 5 (8-16); BLOOD UREA NITROGEN 26 MG/DL (7-18); BUN/CREATININE RATIO 25.5 (5.4-32.0); CALCIUM 8.4 MG/DL (8.5-10.1); CHLORIDE 100 MMOL/L (99-107); CREATININE 1.02 MG/DL (0.60-1.10); GLUCOSE 124 MG/DL (70-104); MAGNESIUM 2.4 MG/DL (1.5-2.4); PHOSPHORUS 4.3 MG/DL (2.3-4.5); POTASSIUM 5.1 MMOL/L (3.5-5.1); SODIUM 136 MMOL/L (135-145); TOTAL CARBON DIOXIDE 31.1 MMOL/L (24-32); eGFR 72 ML/MIN
[2017-11-08] MEDS: magnesium 2GM in 50ml NS 50 ML IV PRN (03:21)
[2017-11-08] MEDS: amiodarone 200mg tablet PO SCH ×2 (08:14→19:03)
[2017-11-08] MEDS: levoTHYROXINE 75mcg tablet PO SCH (08:14)
[2017-11-08] MEDS: atorvastatin 10mg tablet PO SCH (08:14)
[2017-11-08] MEDS: metoprolol tartrate 12.5mg (1/2 tablet) PO SCH (08:14)
[2017-11-08] MEDS: docusate sod 100mg capsule PO SCH ×2 (08:14→19:03)
[2017-11-08] MEDS: pantoprazole 40mg Tablet.DR PO SCH (08:14)
[2017-11-08] MEDS: aspirin 325mg tablet, delayed-release (Ecotrin) PO SCH (08:14)
[2017-11-08] MEDS: Protein Smoothie (high protein) 240ml (8oz) cup PO SCH ×3 (08:15→18:52)
[2017-11-08] MEDS ORDERED: furosemide 20MG tablet PO ONE (08:35)
[2017-11-08] MEDS: HYDROcodone/acetaminophen 10/325mg tab PO PRN ×3 (09:34→17:51)
[2017-11-08] MEDS: insulin regular, human inj. 100 UNITS in normal saline 100ml IV soln 100 ML IV SCH ×2 (19:02)
[2017-11-08] MEDS: carvedilol 6.25mg tablet PO SCH (19:03)
[2017-11-09] VITALS (24 sets, daily range): BP systolic 88–126; BP diastolic 47–79
[2017-11-09] MEDS: sodium chloride 0.45% 1,000 ML IV SCH (01:47)
[2017-11-09 02:48] LABS: BASOPHILS % (AUTO) 0.2 % (0-1); EOSINOPHILS # (AUTO) 0.4 X10'3 (0-0.9); HEMATOCRIT 33.3 % (42.0-52.0); HEMOGLOBIN 11.1 g/dl (14.0-17.9); LYMPHOCYTES # (AUTO) 1.8 X10'3 (1.1-4.8); LYMPHOCYTES % (AUTO) 10.2 % (21-51); MEAN CORPUSCULAR HEMOGLOBIN 29.1 PG (27.0-31.0); MEAN CORPUSCULAR HGB CONC 33.3 % (33.0-36.5); MEAN CORPUSCULAR VOLUME 87.3 FL (78-98); MEAN PLATELET VOLUME 8.4 FL (7.4-10.4); MONOCYTES # (AUTO) 1.7 X10'3 (0-0.9); MONOCYTES % (AUTO) 9.5 % (2-12); NEUTROPHILS # (AUTO) 13.6 X10'3 (1.8-7.7); NEUTROPHILS % (AUTO) 78.1 % (42-75); PLATELET COUNT 198 X10'3 (140-440); RED BLOOD COUNT 3.82 X10'6 (4.70-6.10); RED CELL DISTRIBUTION WIDTH 14.4 % (11.5-14.5); WHITE BLOOD COUNT 17.5 X10'3 (4.5-11.0)
[2017-11-09 03:05] LABS: ALBUMIN 2.7 G/DL (3.4-5.0); ANION GAP 5 (8-16); BLOOD UREA NITROGEN 28 MG/DL (7-18); BUN/CREATININE RATIO 30.8 (5.4-32.0); CALCIUM 8.5 MG/DL (8.5-10.1); CHLORIDE 99 MMOL/L (99-107); CREATININE 0.91 MG/DL (0.60-1.10); GLUCOSE 127 MG/DL (70-104); MAGNESIUM 1.9 MG/DL (1.5-2.4); PHOSPHORUS 4.8 MG/DL (2.3-4.5); POTASSIUM 4.8 MMOL/L (3.5-5.1); SODIUM 134 MMOL/L (135-145); TOTAL CARBON DIOXIDE 29.6 MMOL/L (24-32); eGFR 82 ML/MIN
[2017-11-09] MEDS: magnesium 4gm in 100ml NS 100 ML IV PRN (03:37)
[2017-11-09] MEDS: HYDROcodone/acetaminophen 10/325mg tab PO PRN ×3 (05:42→19:40)
[2017-11-09] MEDS: pantoprazole 40mg Tablet.DR PO SCH (07:15)
[2017-11-09] MEDS: docusate sod 100mg capsule PO SCH ×2 (07:15→19:10)
[2017-11-09] MEDS: carvedilol 6.25mg tablet PO SCH ×2 (07:16→20:00)
[2017-11-09] MEDS: levoTHYROXINE 75mcg tablet PO SCH (07:16)
[2017-11-09] MEDS: atorvastatin 10mg tablet PO SCH (07:16)
[2017-11-09] MEDS: aspirin 325mg tablet, delayed-release (Ecotrin) PO SCH (07:16)
[2017-11-09] MEDS: amiodarone 200mg tablet PO SCH (07:24)
[2017-11-09] MEDS ORDERED: furosemide 20MG tablet PO SCH (08:00)
[2017-11-09] MEDS: lisinopril 2.5mg tablet PO SCH (08:00)
[2017-11-09] MEDS ORDERED: albuterol 2.5 MG/3 ML nebule NEB PRN (08:15)
[2017-11-09] MEDS: Protein Smoothie (high protein) 240ml (8oz) cup PO SCH ×3 (08:23→18:19)
[2017-11-09] MEDS: insulin regular, human inj. 100 UNITS in normal saline 100ml IV soln 100 ML IV SCH ×2 (19:00)
[2017-11-10] VITALS (19 sets, daily range): BP systolic 87–136; BP diastolic 49–77
[2017-11-10] MEDS: HYDROcodone/acetaminophen 10/325mg tab PO PRN ×4 (02:19→23:04)
[2017-11-10 05:18] LABS: BASOPHILS % (AUTO) 0.2 % (0-1); EOSINOPHILS # (AUTO) 0.3 X10'3 (0-0.9); EOSINOPHILS % (AUTO) 2.5 % (0-6); HEMATOCRIT 33.6 % (42.0-52.0); HEMOGLOBIN 11.1 g/dl (14.0-17.9); LYMPHOCYTES # (AUTO) 1.9 X10'3 (1.1-4.8); LYMPHOCYTES % (AUTO) 14.3 % (21-51); MEAN CORPUSCULAR HEMOGLOBIN 28.7 PG (27.0-31.0); MEAN CORPUSCULAR HGB CONC 32.9 % (33.0-36.5); MEAN PLATELET VOLUME 8.7 FL (7.4-10.4); MONOCYTES # (AUTO) 1.3 X10'3 (0-0.9); MONOCYTES % (AUTO) 9.6 % (2-12); NEUTROPHILS # (AUTO) 9.7 X10'3 (1.8-7.7); NEUTROPHILS % (AUTO) 73.4 % (42-75); PLATELET COUNT 238 X10'3 (140-440); RED BLOOD COUNT 3.87 X10'6 (4.70-6.10); RED CELL DISTRIBUTION WIDTH 14.2 % (11.5-14.5); WHITE BLOOD COUNT 13.2 X10'3 (4.5-11.0)
[2017-11-10 05:39] LABS: ALANINE AMINOTRANSFERASE 117 U/L (12-78); ALBUMIN 2.7 G/DL (3.4-5.0); ALBUMIN/GLOBULIN RATIO 0.8 (1.1-1.5); ALKALINE PHOSPHATASE 196 IU/L (46-116); ANION GAP 5 (8-16); ASPARTATE AMINO TRANSFERASE 74 U/L (10-37); BILIRUBIN,TOTAL 0.7 MG/DL (0.1-1.0); BLOOD UREA NITROGEN 35 MG/DL (7-18); BUN/CREATININE RATIO 35.7 (5.4-32.0); CALCIUM 8.7 MG/DL (8.5-10.1); CHLORIDE 95 MMOL/L (99-107); CREATININE 0.98 MG/DL (0.60-1.10); GLUCOSE 122 MG/DL (70-104); MAGNESIUM 2.1 MG/DL (1.5-2.4); PHOSPHORUS 4.9 MG/DL (2.3-4.5); POTASSIUM 5.1 MMOL/L (3.5-5.1); SODIUM 129 MMOL/L (135-145); TOTAL CARBON DIOXIDE 29.5 MMOL/L (24-32); TOTAL PROTEIN 6.3 G/DL (6.4-8.2); eGFR 76 ML/MIN
[2017-11-10] MEDS ORDERED: magnesium citrate 296ml oral solution PO ONE (07:15)
[2017-11-10] MEDS ORDERED: magnesium 2GM in 50ml NS 50 ML IV PRN (07:20)
[2017-11-10] MEDS ORDERED: potassium Cl 20 mEq SR tablet PO PRN ×2 (07:20)
[2017-11-10] MEDS ORDERED: magnesium Cl slow-release 64mg tablet PO PRN (07:20)
[2017-11-10] MEDS ORDERED: magnesium 4gm in 100ml NS 100 ML IV PRN (07:20)
[2017-11-10] MEDS ORDERED: potassium Cl 40MEQ/NS 500ml 500 ML IV PRN ×2 (07:20)
[2017-11-10] MEDS: K and/or MAG REPLACEMENT MC SCH (08:00)
[2017-11-10] MEDS: amiodarone 200mg tablet PO SCH (08:13)
[2017-11-10] MEDS: furosemide 20 MG/2 ML vial IV SCH ×2 (08:13→20:16)
[2017-11-10] MEDS: lisinopril 2.5mg tablet PO SCH (08:14)
[2017-11-10] MEDS: atorvastatin 10mg tablet PO SCH (08:14)
[2017-11-10] MEDS: aspirin 325mg tablet, delayed-release (Ecotrin) PO SCH (08:14)
[2017-11-10] MEDS: carvedilol 6.25mg tablet PO SCH ×2 (08:14→20:16)
[2017-11-10] MEDS: docusate sod 100mg capsule PO SCH ×2 (08:14→20:16)
[2017-11-10] MEDS: pantoprazole 40mg Tablet.DR PO SCH (08:14)
[2017-11-10] MEDS: levoTHYROXINE 75mcg tablet PO SCH (08:14)
[2017-11-10] MEDS: Protein Smoothie (high protein) 240ml (8oz) cup PO SCH ×3 (08:16→18:00)
[2017-11-10] MEDS: potassium Cl 20 mEq SR tablet PO SCH ×2 (08:16→20:00)
[2017-11-10] MEDS: magnesium Cl slow-release 64mg tablet PO SCH ×2 (08:16→20:00)
[2017-11-11 03:00] VITALS: BP 116/57
[2017-11-11] MEDS: HYDROcodone/acetaminophen 10/325mg tab PO PRN ×3 (03:09→15:48)
[2017-11-11 06:00] VITALS: BP 110/75
[2017-11-11 06:45] LABS: ALBUMIN 2.6 G/DL (3.4-5.0); ANION GAP 5 (8-16); BLOOD UREA NITROGEN 41 MG/DL (7-18); BUN/CREATININE RATIO 40.6 (5.4-32.0); CALCIUM 8.7 MG/DL (8.5-10.1); CHLORIDE 97 MMOL/L (99-107); CREATININE 1.01 MG/DL (0.60-1.10); GLUCOSE 111 MG/DL (70-104); MAGNESIUM 1.9 MG/DL (1.5-2.4); POTASSIUM 5.4 MMOL/L (3.5-5.1); SODIUM 130 MMOL/L (135-145); TOTAL CARBON DIOXIDE 28.5 MMOL/L (24-32); eGFR 73 ML/MIN
[2017-11-11 06:50] LABS: BASOPHILS % (AUTO) 0.3 % (0-1); EOSINOPHILS # (AUTO) 0.4 X10'3 (0-0.9); EOSINOPHILS % (AUTO) 3.3 % (0-6); HEMATOCRIT 33.8 % (42.0-52.0); HEMOGLOBIN 11.2 g/dl (14.0-17.9); LYMPHOCYTES # (AUTO) 2.3 X10'3 (1.1-4.8); LYMPHOCYTES % (AUTO) 16.8 % (21-51); MEAN CORPUSCULAR HEMOGLOBIN 28.8 PG (27.0-31.0); MEAN CORPUSCULAR HGB CONC 33.2 % (33.0-36.5); MEAN CORPUSCULAR VOLUME 86.7 FL (78-98); MEAN PLATELET VOLUME 8.7 FL (7.4-10.4); MONOCYTES # (AUTO) 1.1 X10'3 (0-0.9); MONOCYTES % (AUTO) 7.8 % (2-12); NEUTROPHILS # (AUTO) 9.8 X10'3 (1.8-7.7); NEUTROPHILS % (AUTO) 71.8 % (42-75); PLATELET COUNT 244 X10'3 (140-440); RED CELL DISTRIBUTION WIDTH 14.3 % (11.5-14.5); WHITE BLOOD COUNT 13.6 X10'3 (4.5-11.0)
[2017-11-11] MEDS: potassium Cl 20 mEq SR tablet PO SCH (07:03)
[2017-11-11] MEDS ORDERED: furosemide 20 MG/2 ML vial IV ONE (07:55)
[2017-11-11] MEDS: lisinopril 2.5mg tablet PO SCH (08:00)
[2017-11-11] MEDS: Protein Smoothie (high protein) 240ml (8oz) cup PO SCH ×2 (08:00→13:00)
[2017-11-11] MEDS: furosemide 20 MG/2 ML vial IV SCH (08:00)
[2017-11-11] MEDS: K and/or MAG REPLACEMENT MC SCH (08:00)
[2017-11-11] MEDS ORDERED: furosemide 20MG tablet PO SCH (08:00)
[2017-11-11] MEDS: carvedilol 6.25mg tablet PO SCH (08:00)
[2017-11-11 11:00] VITALS: BP 100/63
[2017-11-11] MEDS: magnesium Cl slow-release 64mg tablet PO SCH (11:05)
[2017-11-11] MEDS: pantoprazole 40mg Tablet.DR PO SCH (11:05)
[2017-11-11] MEDS: levoTHYROXINE 75mcg tablet PO SCH (11:05)
[2017-11-11] MEDS: docusate sod 100mg capsule PO SCH (11:05)
[2017-11-11] MEDS: atorvastatin 10mg tablet PO SCH (11:05)
[2017-11-11] MEDS: aspirin 325mg tablet, delayed-release (Ecotrin) PO SCH (11:06)
[2017-11-11] MEDS: amiodarone 200mg tablet PO SCH (11:06)
[2017-11-12] MEDS ORDERED: MAGN400O6 PO (03:01)
[2017-11-12] MEDS ORDERED: HYDR-565 PO (03:01)
[2017-11-12] MEDS ORDERED: FURO-150 PO (03:01)
[2017-11-12] MEDS ORDERED: ASPI-1264 PO (03:01)
[2017-11-12] MEDS ORDERED: AMIO200T57 PO (03:01)
[2017-11-12] MEDS ORDERED: NA P133E4 RC (03:01)
[2017-11-12] MEDS ORDERED: CARV-49 PO (03:01)
[2017-11-12] MEDS ORDERED: BISA10SU60 RC (03:01)
[2017-11-12] MEDS ORDERED: ACET-2119 PO (03:01)
[2017-11-12] MEDS ORDERED: ATOR10TA70 PO (03:01)
[2017-11-12] MEDS ORDERED: PPD ID (03:01)
[2017-11-12] MEDS ORDERED: DOCU100C41 PO (03:01)
[2017-11-12] MEDS ORDERED: IPRA3AMP IH (03:01)
[2017-11-12] MEDS ORDERED: PANT-47 PO (03:01)
== END 2017-11-11 16:00 | DRG 233 ==
LOC: ER 09:31 → ED HOLD 11:16 → PCU 3S 15:32 → OBSVTOIN 11-04 09:05 → ICU 2S 11-04 18:00 → PCU 3S 11-10 17:09
PROVIDERS: ADMIT Internal Medicine Interventional Cardiology; ATTEND Thoracic Surgery (Cardiothoracic Vascular Surgery)
PROC: 4A023N7 Measurement of Cardiac Sampling and Pressure, Left Heart, Percutaneous Approach (ICD-10-PCS; principal; 2017-11-03)
PROC: B2111ZZ Fluoroscopy of Multiple Coronary Arteries using Low Osmolar Contrast (ICD-10-PCS; 2017-11-03)
PROC: B2181ZZ Fluoroscopy of Left Internal Mammary Bypass Graft using Low Osmolar Contrast (ICD-10-PCS; 2017-11-03)
PROC: B2151ZZ Fluoroscopy of Left Heart using Low Osmolar Contrast (ICD-10-PCS; 2017-11-03)
PROC: B41F1ZZ Fluoroscopy of Right Lower Extremity Arteries using Low Osmolar Contrast (ICD-10-PCS; 2017-11-03)
PROC: 021109W Bypass Coronary Artery, Two Arteries from Aorta with Autologous Venous Tissue, Open Approach (ICD-10-PCS; 2017-11-04)
PROC: 5A02210 Assistance with Cardiac Output using Balloon Pump, Continuous (ICD-10-PCS; 2017-11-04)
PROC: 06BP4ZZ Excision of Right Saphenous Vein, Percutaneous Endoscopic Approach (ICD-10-PCS; 2017-11-04)
PROC: B24BZZ4 Ultrasonography of Heart with Aorta, Transesophageal (ICD-10-PCS; 2017-11-04)
PROC: 02HV33Z Insertion of Infusion Device into Superior Vena Cava, Percutaneous Approach (ICD-10-PCS; 2017-11-04)
PROC: 02HP32Z Insertion of Monitoring Device into Pulmonary Trunk, Percutaneous Approach (ICD-10-PCS; 2017-11-04)
PROC: 4A133B3 Monitoring of Arterial Pressure, Pulmonary, Percutaneous Approach (ICD-10-PCS; 2017-11-04)
PROC: 4A1239Z Monitoring of Cardiac Output, Percutaneous Approach (ICD-10-PCS; 2017-11-04)
PROC: 30233R1 Transfusion of Nonautologous Platelets into Peripheral Vein, Percutaneous Approach (ICD-10-PCS; 2017-11-05)
DX: I21.4 Non-ST elevation (NSTEMI) myocardial infarction (principal); I50.43 Acute on chronic combined systolic (congestive) and diastolic (congestive) heart failure; I47.2 Ventricular tachycardia; I11.0 Hypertensive heart disease with heart failure; I65.23 Occlusion and stenosis of bilateral carotid arteries; D64.9 Anemia, unspecified; E11.9 Type 2 diabetes mellitus without complications; E03.9 Hypothyroidism, unspecified; J44.9 Chronic obstructive pulmonary disease, unspecified; M54.9 Dorsalgia, unspecified; K21.9 Gastro-esophageal reflux disease without esophagitis; E78.5 Hyperlipidemia, unspecified; G89.29 Other chronic pain; I25.110 Atherosclerotic heart disease of native coronary artery with unstable angina pectoris; M47.9 Spondylosis, unspecified; F10.21 Alcohol dependence, in remission; F17.210 Nicotine dependence, cigarettes, uncomplicated; Z79.899 Other long term (current) drug therapy; Z79.82 Long term (current) use of aspirin; Z81.1 Family history of alcohol abuse and dependence; Z71.6 Tobacco abuse counseling
CPT/HCPCS: 0232T; 93306; 93312; 93325; 93458; 96361; 96374; 96376; 99285; 36415; 36600; 71045; 71046; 80048; 80053; 80061; 82330; 82435; 82800; 82803; 82947; 82948; 83036; 83735; 83880; 84100; 84132; 84295; 84443; 84484; 85018; 85025; 85027; 85347; 85384; 85610; 85730; 86885; 86900; 86901; 86920; 87070; 93005; 93880; 93971; 94002; 94003; 94060; 94640; 94668; 94760; 97116; 97162; 97530; 99152; 99153; A4620; A6209; A6213; A6223; A6257; A6402; A6449; A7000; A7015; A7048; C1713; C1725; C1760; C1769; G0378; J0171; J0282; J0690; J1250; J1644; J1815; J1940; J2001; J2060; J2250; J2270; J2370; J2405; J2440; J2704; J3010; J3370; J3475; J3480; J3490; J7030; J7060; J7120; P9035; P9045; Q9967

== ENCOUNTER 2017-11-11 23:45 | Inpatient (IN) | payer MEDICARE, OTHER ==
[~2017-11-11] VITALS: Ht 170.2 cm; Wt 113.9 kg
[2017-11-11 06:00] VITALS: BP 123/71
[2017-11-12 00:11] LABS: BASOPHILS # (AUTO) 0.1 X10'3 (0-0.2); BASOPHILS % (AUTO) 0.4 % (0-1); EOSINOPHILS # (AUTO) 0.4 X10'3 (0-0.9); EOSINOPHILS % (AUTO) 2.8 % (0-6); HEMATOCRIT 33.8 % (42.0-52.0); HEMOGLOBIN 11.1 g/dl (14.0-17.9); LYMPHOCYTES # (AUTO) 1.8 X10'3 (1.1-4.8); LYMPHOCYTES % (AUTO) 12.6 % (21-51); MEAN CORPUSCULAR HEMOGLOBIN 28.6 PG (27.0-31.0); MEAN CORPUSCULAR HGB CONC 32.9 % (33.0-36.5); MEAN CORPUSCULAR VOLUME 86.9 FL (78-98); NEUTROPHILS % (AUTO) 77.2 % (42-75); PLATELET COUNT 286 X10'3 (140-440); RED BLOOD COUNT 3.89 X10'6 (4.70-6.10); RED CELL DISTRIBUTION WIDTH 14.4 % (11.5-14.5); WHITE BLOOD COUNT 14.2 X10'3 (4.5-11.0)
[2017-11-12 00:26] LABS: ALANINE AMINOTRANSFERASE 128 U/L (12-78); ALBUMIN 2.8 G/DL (3.4-5.0); ALBUMIN/GLOBULIN RATIO 0.7 (1.1-1.5); ALKALINE PHOSPHATASE 256 IU/L (46-116); ANION GAP 6 (8-16); ASPARTATE AMINO TRANSFERASE 61 U/L (10-37); BILIRUBIN,TOTAL 0.5 MG/DL (0.1-1.0); BLOOD UREA NITROGEN 43 MG/DL (7-18); BUN/CREATININE RATIO 34.7 (5.4-32.0); CALCIUM 8.6 MG/DL (8.5-10.1); CHLORIDE 96 MMOL/L (99-107); CREATININE 1.24 MG/DL (0.60-1.10); GLUCOSE 175 MG/DL (70-104); POTASSIUM 5.5 MMOL/L (3.5-5.1); SODIUM 132 MMOL/L (135-145); TOTAL CARBON DIOXIDE 30.1 MMOL/L (24-32); TOTAL PROTEIN 6.6 G/DL (6.4-8.2); eGFR 58 ML/MIN
[2017-11-12 00:34] LABS: MAGNESIUM 2.1 MG/DL (1.5-2.4)
[2017-11-12 00:36] LABS: TROPONIN I 2.88 NG/ML (0.0-0.05)
[2017-11-12 00:37] LABS: PARTIAL THROMBOPLASTIN TIME 28 SECONDS (22-32); PROTHROMBIN TIME 10.7 SECONDS (9.0-12.0)
[2017-11-12] MEDS ORDERED: enoxaparin 100mg/ml syringe SUBCUT ONE (00:45)
[2017-11-12] MEDS ORDERED: aspirin 325mg tablet PO ONE (00:45)
[2017-11-12 01:06] LABS: D-DIMER 2.43 MG/L FEU (0-0.50)
[2017-11-12] MEDS ORDERED: normal saline 1000ML IV soln IVB ONE (01:30)
[2017-11-12 01:39] LABS: CLARITY,URINE Clear (Clear); COLOR,URINE Yellow (Yellow); GLUCOSE, URINE Negative (Neg); KETONES,URINE Negative (Neg); LEUKOCYTE ESTERASE ,URINE Negative (Neg); NITRITES, URINE Negative (Neg); OCCULT BLOOD,URINE Negative (Neg); PROTEIN,URINE 30 mg/dl (Neg)
[2017-11-12 01:46] LABS: UA COLLECTION TYPE CLN CATCH MIDSTREAM
[2017-11-12] MEDS ORDERED: iohexol 350MG/ML 100ml bottle IV ONE (01:48)
[2017-11-12 02:13] LABS: HYALINE CASTS 0-3 /LPF (NEGATIVE)
[2017-11-12 02:14] LABS: BACTERIA,URINE NONE SEEN /HPF (Neg); MUCUS STRANDS NONE SEEN /LPF (Neg); RBC,URINE NONE SEEN /HPF (0-2); SQUAMOUS EPITHELIAL CELL,UR NONE SEEN /LPF (FEW); WBC,URINE 0-4 /HPF (0-4)
[2017-11-12] MEDS ORDERED: ACET-2119 PO (03:01)
[2017-11-12] MEDS ORDERED: ATOR10TA70 PO (03:01)
[2017-11-12] MEDS ORDERED: DOCU100C41 PO (03:01)
[2017-11-12] MEDS ORDERED: ASPI-1264 PO (03:01)
[2017-11-12] MEDS ORDERED: PANT-47 PO (03:01)
[2017-11-12] MEDS ORDERED: HYDR-565 PO (03:01)
[2017-11-12] MEDS ORDERED: NA P133E4 RC (03:01)
[2017-11-12] MEDS ORDERED: IPRA3AMP IH (03:01)
[2017-11-12] MEDS ORDERED: AMIO200T57 PO (03:01)
[2017-11-12] MEDS ORDERED: FURO-150 PO (03:01)
[2017-11-12] MEDS ORDERED: BISA10SU60 RC (03:01)
[2017-11-12] MEDS ORDERED: PPD ID (03:01)
[2017-11-12] MEDS ORDERED: CARV-49 PO (03:01)
[2017-11-12] MEDS ORDERED: MAGN400O6 PO (03:01)
[2017-11-12] MEDS ORDERED: ondansetron/PF 4mg/2ml inj IV PRN (03:15)
[2017-11-12] MEDS ORDERED: morphine 2 MG/ML inj. syringe IV PRN ×2 (03:15)
[2017-11-12] MEDS ORDERED: mag hydrox/Alum hydrox/simeth 30ml oral suspension PO PRN (03:15)
[2017-11-12] MEDS ORDERED: acetaminophen 325mg tablet PO PRN ×2 (03:15)
[2017-11-12] MEDS ORDERED: dextrose ORAL solution 15 GM/59 ML bottle PO PRN ×2 (03:25)
[2017-11-12] MEDS ORDERED: MESSAGE TO PHARMACY PO ONE (03:25)
[2017-11-12] MEDS ORDERED: dextrose 50%-water 50ml dispensing syringe IV PRN ×2 (03:25)
[2017-11-12] MEDS ORDERED: glucagon, human recombinant 1mg kit SUBCUT PRN (03:25)
[2017-11-12] MEDS ORDERED: ipratropium/albuterol 3ml nebule IH PRN (03:30)
[2017-11-12] MEDS ORDERED: HYDROcodone/acetaminophen 10/325mg tab PO PRN (03:30)
[2017-11-12] MEDS: levoTHYROXINE 75mcg tablet PO SCH (07:43)
[2017-11-12] MEDS: aspirin 325mg tablet PO SCH (07:43)
[2017-11-12] MEDS: carvedilol 6.25mg tablet PO SCH ×2 (07:43→21:31)
[2017-11-12] MEDS: amiodarone 200mg tablet PO SCH (07:44)
[2017-11-12] MEDS: ferrous sulfate 325mg tablet PO SCH (07:44)
[2017-11-12] MEDS: pantoprazole 40mg Tablet.DR PO SCH (07:44)
[2017-11-12] MEDS: enoxaparin 50mg/0.5ml (from 3ml vial) syringe SUBCUT SCH ×2 (07:49→21:30)
[2017-11-12] MEDS ORDERED: furosemide 20MG tablet PO SCH (08:00)
[2017-11-12 11:00] VITALS: BP 114/58
[2017-11-12] MEDS: HYDROcodone/acetaminophen 10/325mg tab PO PRN ×3 (12:40→21:33)
[2017-11-12 15:00] VITALS: BP 121/61
[2017-11-12] MEDS ORDERED: guaiFENesin/codeine phos 10ml UD oral syrup PO PRN (15:20)
[2017-11-12] MEDS ORDERED: methylPREDNISolone sod succ 125mg/2ml vial IV ONE (15:30)
[2017-11-12] MEDS: ipratropium 0.5 MG/2.5ML nebule IH SCH ×3 (16:38→23:29)
[2017-11-12 19:00] VITALS: BP 121/62
[2017-11-12] MEDS: Insulin Detemir pen SQ SCH (21:00)
[2017-11-12] MEDS ORDERED: SIMVASTATIN PO SCH (21:00)
[2017-11-12] MEDS: furosemide 20MG tablet PO SCH (21:31)
[2017-11-12] MEDS: atorvastatin 10mg tablet PO SCH (21:31)
[2017-11-12] MEDS: lisinopril 2.5mg tablet PO SCH (21:31)
[2017-11-12 23:00] VITALS: BP 134/66
[2017-11-13 03:00] VITALS: BP 134/87
[2017-11-13] MEDS: ipratropium 0.5 MG/2.5ML nebule IH SCH ×6 (03:28→23:08)
[2017-11-13] MEDS: HYDROcodone/acetaminophen 10/325mg tab PO PRN ×4 (03:54→19:31)
[2017-11-13 05:10] LABS: BASOPHILS % (AUTO) 0.1 % (0-1); EOSINOPHILS # (AUTO) 0.2 X10'3 (0-0.9); EOSINOPHILS % (AUTO) 1.6 % (0-6); HEMATOCRIT 34.1 % (42.0-52.0); HEMOGLOBIN 11.2 g/dl (14.0-17.9); LYMPHOCYTES # (AUTO) 1.2 X10'3 (1.1-4.8); LYMPHOCYTES % (AUTO) 8.5 % (21-51); MEAN CORPUSCULAR HEMOGLOBIN 28.4 PG (27.0-31.0); MEAN CORPUSCULAR HGB CONC 32.9 % (33.0-36.5); MEAN CORPUSCULAR VOLUME 86.3 FL (78-98); MEAN PLATELET VOLUME 7.9 FL (7.4-10.4); MONOCYTES # (AUTO) 0.5 X10'3 (0-0.9); MONOCYTES % (AUTO) 3.6 % (2-12); NEUTROPHILS # (AUTO) 11.9 X10'3 (1.8-7.7); NEUTROPHILS % (AUTO) 86.2 % (42-75); PLATELET COUNT 363 X10'3 (140-440); RED BLOOD COUNT 3.95 X10'6 (4.70-6.10); RED CELL DISTRIBUTION WIDTH 14.3 % (11.5-14.5); WHITE BLOOD COUNT 13.9 X10'3 (4.5-11.0)
[2017-11-13 05:39] LABS: ALBUMIN 2.8 G/DL (3.4-5.0); ANION GAP 5 (8-16); BLOOD UREA NITROGEN 24 MG/DL (7-18); BUN/CREATININE RATIO 23.8 (5.4-32.0); CALCIUM 8.5 MG/DL (8.5-10.1); CHLORIDE 94 MMOL/L (99-107); CREATININE 1.01 MG/DL (0.60-1.10); GLUCOSE 160 MG/DL (70-104); POTASSIUM 5.7 MMOL/L (3.5-5.1); SODIUM 130 MMOL/L (135-145); TOTAL CARBON DIOXIDE 31.2 MMOL/L (24-32); eGFR 73 ML/MIN
[2017-11-13 06:00] VITALS: BP 117/66
[2017-11-13] MEDS ORDERED: sodium polystyrene sulfonate 15gm/60ml oral suspension PO ONE (07:35)
[2017-11-13] MEDS: furosemide 20MG tablet PO SCH ×2 (08:52→20:28)
[2017-11-13] MEDS: levoTHYROXINE 75mcg tablet PO SCH (08:52)
[2017-11-13] MEDS: ferrous sulfate 325mg tablet PO SCH (08:52)
[2017-11-13] MEDS: aspirin 325mg tablet PO SCH (08:52)
[2017-11-13] MEDS: carvedilol 6.25mg tablet PO SCH ×2 (08:53→20:28)
[2017-11-13] MEDS: pantoprazole 40mg Tablet.DR PO SCH (08:53)
[2017-11-13] MEDS: amiodarone 200mg tablet PO SCH (08:53)
[2017-11-13] MEDS: enoxaparin 50mg/0.5ml (from 3ml vial) syringe SUBCUT SCH ×2 (08:54→20:27)
[2017-11-13 11:00] VITALS: BP 145/61
[2017-11-13] MEDS: MESSAGE TO NURSING PO NR (12:48)
[2017-11-13 15:00] VITALS: BP 106/67
[2017-11-13 18:00] VITALS: BP 108/54
[2017-11-13] MEDS: methylPREDNISolone sod succ/PF 40mg inj. IV SCH (20:27)
[2017-11-13] MEDS: lisinopril 2.5mg tablet PO SCH (20:28)
[2017-11-13] MEDS: atorvastatin 10mg tablet PO SCH (20:28)
[2017-11-13] MEDS: Insulin Detemir pen SQ SCH (21:00)
[2017-11-13 23:00] VITALS: BP 116/59
[2017-11-14] MEDS: HYDROcodone/acetaminophen 10/325mg tab PO PRN ×5 (00:14→21:08)
[2017-11-14 03:00] VITALS: BP 100/62
[2017-11-14] MEDS: ipratropium 0.5 MG/2.5ML nebule IH SCH ×6 (03:13→23:31)
[2017-11-14 05:59] LABS: BASOPHILS # (AUTO) 0.1 X10'3 (0-0.2); BASOPHILS % (AUTO) 0.5 % (0-1); EOSINOPHILS # (AUTO) 0.3 X10'3 (0-0.9); EOSINOPHILS % (AUTO) 1.5 % (0-6); HEMATOCRIT 33.8 % (42.0-52.0); HEMOGLOBIN 11.1 g/dl (14.0-17.9); LYMPHOCYTES # (AUTO) 1.6 X10'3 (1.1-4.8); LYMPHOCYTES % (AUTO) 8.2 % (21-51); MEAN CORPUSCULAR HEMOGLOBIN 28.4 PG (27.0-31.0); MEAN CORPUSCULAR HGB CONC 32.8 % (33.0-36.5); MEAN CORPUSCULAR VOLUME 86.6 FL (78-98); MEAN PLATELET VOLUME 8.5 FL (7.4-10.4); MONOCYTES # (AUTO) 0.7 X10'3 (0-0.9); MONOCYTES % (AUTO) 3.4 % (2-12); NEUTROPHILS # (AUTO) 16.8 X10'3 (1.8-7.7); NEUTROPHILS % (AUTO) 86.4 % (42-75); PLATELET COUNT 381 X10'3 (140-440); RED BLOOD COUNT 3.91 X10'6 (4.70-6.10); RED CELL DISTRIBUTION WIDTH 14.6 % (11.5-14.5); WHITE BLOOD COUNT 19.5 X10'3 (4.5-11.0)
[2017-11-14 06:00] VITALS: BP 104/56
[2017-11-14 06:23] LABS: ALBUMIN 2.8 G/DL (3.4-5.0); ANION GAP 4 (8-16); BLOOD UREA NITROGEN 24 MG/DL (7-18); BUN/CREATININE RATIO 24.7 (5.4-32.0); CALCIUM 8.7 MG/DL (8.5-10.1); CHLORIDE 91 MMOL/L (99-107); CREATININE 0.97 MG/DL (0.60-1.10); GLUCOSE 156 MG/DL (70-104); POTASSIUM 5.5 MMOL/L (3.5-5.1); SODIUM 127 MMOL/L (135-145); TOTAL CARBON DIOXIDE 32.1 MMOL/L (24-32); eGFR 77 ML/MIN
[2017-11-14] MEDS: enoxaparin 50mg/0.5ml (from 3ml vial) syringe SUBCUT SCH ×2 (08:51→19:25)
[2017-11-14] MEDS: methylPREDNISolone sod succ/PF 40mg inj. IV SCH ×2 (08:51→19:25)
[2017-11-14] MEDS: amiodarone 200mg tablet PO SCH (08:52)
[2017-11-14] MEDS: ferrous sulfate 325mg tablet PO SCH (08:52)
[2017-11-14] MEDS: aspirin 325mg tablet PO SCH (08:52)
[2017-11-14] MEDS: furosemide 20MG tablet PO SCH ×2 (08:52→19:24)
[2017-11-14] MEDS: carvedilol 6.25mg tablet PO SCH ×2 (08:52→19:24)
[2017-11-14] MEDS: levoTHYROXINE 75mcg tablet PO SCH (08:52)
[2017-11-14] MEDS: pantoprazole 40mg Tablet.DR PO SCH (08:52)
[2017-11-14] MEDS: MESSAGE TO NURSING PO NR (10:07)
[2017-11-14 11:00] VITALS: BP 111/48
[2017-11-14 15:00] VITALS: BP 107/54
[2017-11-14 18:00] VITALS: BP 103/55
[2017-11-14] MEDS: rivaroxaban 15mg tablet PO SCH (19:24)
[2017-11-14] MEDS: Insulin Detemir pen SQ SCH (21:00)
[2017-11-14] MEDS: lisinopril 2.5mg tablet PO SCH (21:07)
[2017-11-14] MEDS: atorvastatin 10mg tablet PO SCH (21:07)
[2017-11-14 23:00] VITALS: BP 96/67
[2017-11-15] MEDS: HYDROcodone/acetaminophen 10/325mg tab PO PRN ×4 (02:11→16:03)
[2017-11-15] MEDS: ipratropium 0.5 MG/2.5ML nebule IH SCH ×6 (02:56→23:47)
[2017-11-15 03:00] VITALS: BP 102/56
[2017-11-15 06:00] VITALS: BP 113/54
[2017-11-15 06:10] LABS: BASOPHILS % (AUTO) 0 % (0-1); EOSINOPHILS # (AUTO) 0.4 X10'3 (0-0.9); EOSINOPHILS % (AUTO) 1.9 % (0-6); HEMOGLOBIN 11.7 g/dl (14.0-17.9); LYMPHOCYTES # (AUTO) 1.7 X10'3 (1.1-4.8); LYMPHOCYTES % (AUTO) 8.5 % (21-51); MEAN CORPUSCULAR HEMOGLOBIN 28.4 PG (27.0-31.0); MEAN CORPUSCULAR HGB CONC 32.7 % (33.0-36.5); MEAN CORPUSCULAR VOLUME 86.8 FL (78-98); MEAN PLATELET VOLUME 8.2 FL (7.4-10.4); MONOCYTES % (AUTO) 4.8 % (2-12); NEUTROPHILS # (AUTO) 17.4 X10'3 (1.8-7.7); NEUTROPHILS % (AUTO) 84.8 % (42-75); PLATELET COUNT 454 X10'3 (140-440); RED BLOOD COUNT 4.14 X10'6 (4.70-6.10); RED CELL DISTRIBUTION WIDTH 14.1 % (11.5-14.5); WHITE BLOOD COUNT 20.6 X10'3 (4.5-11.0)
[2017-11-15 06:41] LABS: ALANINE AMINOTRANSFERASE 69 U/L (12-78); ALBUMIN 3.1 G/DL (3.4-5.0); ALBUMIN/GLOBULIN RATIO 0.8 (1.1-1.5); ALKALINE PHOSPHATASE 160 IU/L (46-116); ANION GAP 1 (8-16); ASPARTATE AMINO TRANSFERASE 21 U/L (10-37); BILIRUBIN,TOTAL 0.6 MG/DL (0.1-1.0); BLOOD UREA NITROGEN 29 MG/DL (7-18); BUN/CREATININE RATIO 25.7 (5.4-32.0); CALCIUM 9.1 MG/DL (8.5-10.1); CHLORIDE 93 MMOL/L (99-107); CREATININE 1.13 MG/DL (0.60-1.10); GLUCOSE 146 MG/DL (70-104); MAGNESIUM 2.2 MG/DL (1.5-2.4); PHOSPHORUS 4.7 MG/DL (2.3-4.5); POTASSIUM 5.1 MMOL/L (3.5-5.1); SODIUM 130 MMOL/L (135-145); TOTAL CARBON DIOXIDE 35.6 MMOL/L (24-32); eGFR 64 ML/MIN
[2017-11-15] MEDS: carvedilol 6.25mg tablet PO SCH ×2 (07:55→20:00)
[2017-11-15] MEDS: rivaroxaban 15mg tablet PO SCH ×2 (07:55→19:32)
[2017-11-15] MEDS: amiodarone 200mg tablet PO SCH (07:55)
[2017-11-15] MEDS: methylPREDNISolone sod succ/PF 40mg inj. IV SCH ×2 (07:57→19:32)
[2017-11-15] MEDS: levoTHYROXINE 75mcg tablet PO SCH (07:57)
[2017-11-15] MEDS: aspirin 325mg tablet PO SCH (07:57)
[2017-11-15] MEDS: pantoprazole 40mg Tablet.DR PO SCH (07:57)
[2017-11-15] MEDS: furosemide 20MG tablet PO SCH ×2 (07:57→20:06)
[2017-11-15] MEDS: ferrous sulfate 325mg tablet PO SCH (07:57)
[2017-11-15] MEDS: enoxaparin 50mg/0.5ml (from 3ml vial) syringe SUBCUT SCH ×2 (08:01→19:41)
[2017-11-15] MEDS: MESSAGE TO NURSING PO NR (10:01)
[2017-11-15 11:00] VITALS: BP 100/58
[2017-11-15 15:00] VITALS: BP 107/47
[2017-11-15 18:00] VITALS: BP 122/62
[2017-11-15] MEDS: atorvastatin 10mg tablet PO SCH (20:06)
[2017-11-15] MEDS: Insulin Detemir pen SQ SCH (21:00)
[2017-11-15] MEDS: lisinopril 2.5mg tablet PO SCH (21:00)
[2017-11-15 22:00] VITALS: BP 130/54
[2017-11-16 02:00] VITALS: BP 116/64
[2017-11-16] MEDS: ipratropium 0.5 MG/2.5ML nebule IH SCH ×6 (03:25→23:44)
[2017-11-16] MEDS: HYDROcodone/acetaminophen 10/325mg tab PO PRN ×4 (05:29→22:33)
[2017-11-16 06:00] VITALS: BP 125/35
[2017-11-16 06:19] LABS: BASOPHILS # (AUTO) 0.1 X10'3 (0-0.2); BASOPHILS % (AUTO) 0.4 % (0-1); EOSINOPHILS # (AUTO) 0.5 X10'3 (0-0.9); EOSINOPHILS % (AUTO) 1.9 % (0-6); HEMATOCRIT 36.1 % (42.0-52.0); HEMOGLOBIN 11.9 g/dl (14.0-17.9); LYMPHOCYTES # (AUTO) 1.8 X10'3 (1.1-4.8); LYMPHOCYTES % (AUTO) 6.5 % (21-51); MEAN CORPUSCULAR HEMOGLOBIN 28.4 PG (27.0-31.0); MEAN CORPUSCULAR HGB CONC 32.9 % (33.0-36.5); MEAN CORPUSCULAR VOLUME 86.5 FL (78-98); MEAN PLATELET VOLUME 8.7 FL (7.4-10.4); MONOCYTES # (AUTO) 1.3 X10'3 (0-0.9); MONOCYTES % (AUTO) 4.8 % (2-12); NEUTROPHILS % (AUTO) 86.4 % (42-75); PLATELET COUNT 439 X10'3 (140-440); RED BLOOD COUNT 4.18 X10'6 (4.70-6.10); RED CELL DISTRIBUTION WIDTH 14.8 % (11.5-14.5)
[2017-11-16 06:25] LABS: ALBUMIN 3.2 G/DL (3.4-5.0); ANION GAP 3 (8-16); BLOOD UREA NITROGEN 29 MG/DL (7-18); CALCIUM 9.5 MG/DL (8.5-10.1); CHLORIDE 95 MMOL/L (99-107); GLUCOSE 146 MG/DL (70-104); POTASSIUM 5.2 MMOL/L (3.5-5.1); SODIUM 132 MMOL/L (135-145); TOTAL CARBON DIOXIDE 33.7 MMOL/L (24-32); eGFR 74 ML/MIN
[2017-11-16 06:28] LABS: WHITE BLOOD COUNT 27.8 X10'3 (4.5-11.0)
[2017-11-16 06:48] LABS: LYMPHOCYTES % (MANUAL) 9 % (21-51); MONOCYTES % (MANUAL) 5 % (2-12); NEUTROPHILS % (MANUAL) 86 % (42-75); PLATELET ESTIMATE NORMAL; TOTAL CELLS COUNTED 100
[2017-11-16] MEDS: methylPREDNISolone sod succ/PF 40mg inj. IV SCH ×2 (07:07→20:20)
[2017-11-16] MEDS: enoxaparin 50mg/0.5ml (from 3ml vial) syringe SUBCUT SCH ×2 (07:07→20:21)
[2017-11-16] MEDS: carvedilol 6.25mg tablet PO SCH ×2 (07:08→20:21)
[2017-11-16] MEDS: furosemide 20MG tablet PO SCH ×2 (07:08→20:22)
[2017-11-16] MEDS: amiodarone 200mg tablet PO SCH (07:08)
[2017-11-16] MEDS: pantoprazole 40mg Tablet.DR PO SCH (07:08)
[2017-11-16] MEDS: rivaroxaban 15mg tablet PO SCH ×2 (07:08→20:21)
[2017-11-16] MEDS: levoTHYROXINE 75mcg tablet PO SCH (07:08)
[2017-11-16] MEDS: ferrous sulfate 325mg tablet PO SCH (07:08)
[2017-11-16] MEDS: aspirin 325mg tablet PO SCH (07:08)
[2017-11-16 11:00] VITALS: BP 103/57
[2017-11-16 15:00] VITALS: BP 122/58
[2017-11-16 19:00] VITALS: BP 116/59
[2017-11-16] MEDS: lisinopril 2.5mg tablet PO SCH (20:21)
[2017-11-16] MEDS: atorvastatin 10mg tablet PO SCH (20:21)
[2017-11-16] MEDS: Insulin Detemir pen SQ SCH (21:00)
[2017-11-16 23:00] VITALS: BP 107/62
[2017-11-17 03:00] VITALS: BP 101/57
[2017-11-17] MEDS: ipratropium 0.5 MG/2.5ML nebule IH SCH ×6 (03:00→22:48)
[2017-11-17] MEDS: HYDROcodone/acetaminophen 10/325mg tab PO PRN ×4 (03:19→20:55)
[2017-11-17 05:27] LABS: BASOPHILS % (AUTO) 0.1 % (0-1); EOSINOPHILS # (AUTO) 0.4 X10'3 (0-0.9); EOSINOPHILS % (AUTO) 1.6 % (0-6); HEMATOCRIT 33.7 % (42.0-52.0); LYMPHOCYTES # (AUTO) 1.5 X10'3 (1.1-4.8); LYMPHOCYTES % (AUTO) 6.6 % (21-51); MEAN CORPUSCULAR HEMOGLOBIN 28.2 PG (27.0-31.0); MEAN CORPUSCULAR HGB CONC 32.7 % (33.0-36.5); MEAN CORPUSCULAR VOLUME 86.4 FL (78-98); MEAN PLATELET VOLUME 8.1 FL (7.4-10.4); MONOCYTES % (AUTO) 4.1 % (2-12); NEUTROPHILS # (AUTO) 20.6 X10'3 (1.8-7.7); NEUTROPHILS % (AUTO) 87.6 % (42-75); PLATELET COUNT 440 X10'3 (140-440); RED CELL DISTRIBUTION WIDTH 14.7 % (11.5-14.5); WHITE BLOOD COUNT 23.6 X10'3 (4.5-11.0)
[2017-11-17 05:36] LABS: ANION GAP 2 (8-16); BLOOD UREA NITROGEN 33 MG/DL (7-18); BUN/CREATININE RATIO 27.5 (5.4-32.0); CALCIUM 8.8 MG/DL (8.5-10.1); CHLORIDE 94 MMOL/L (99-107); GLUCOSE 158 MG/DL (70-104); MAGNESIUM 2.1 MG/DL (1.5-2.4); PHOSPHORUS 4.6 MG/DL (2.3-4.5); SODIUM 132 MMOL/L (135-145); eGFR 60 ML/MIN
[2017-11-17 06:00] VITALS: BP 100/59
[2017-11-17] MEDS: aspirin 325mg tablet PO SCH (07:34)
[2017-11-17] MEDS: rivaroxaban 15mg tablet PO SCH ×2 (07:35→20:55)
[2017-11-17] MEDS: pantoprazole 40mg Tablet.DR PO SCH (07:35)
[2017-11-17] MEDS: furosemide 20MG tablet PO SCH ×2 (07:35→20:00)
[2017-11-17] MEDS: levoTHYROXINE 75mcg tablet PO SCH (07:35)
[2017-11-17] MEDS: carvedilol 6.25mg tablet PO SCH ×2 (07:36→20:00)
[2017-11-17] MEDS: ferrous sulfate 325mg tablet PO SCH (07:36)
[2017-11-17] MEDS: amiodarone 200mg tablet PO SCH (07:36)
[2017-11-17] MEDS: methylPREDNISolone sod succ/PF 40mg inj. IV SCH (07:38)
[2017-11-17] MEDS: enoxaparin 50mg/0.5ml (from 3ml vial) syringe SUBCUT SCH ×2 (07:39→20:54)
[2017-11-17 11:00] VITALS: BP 98/59
[2017-11-17 13:50] LABS: BASOPHILS % (AUTO) 0.2 % (0-1); EOSINOPHILS # (AUTO) 0.4 X10'3 (0-0.9); EOSINOPHILS % (AUTO) 1.4 % (0-6); HEMOGLOBIN 11.4 g/dl (14.0-17.9); LYMPHOCYTES # (AUTO) 1.4 X10'3 (1.1-4.8); LYMPHOCYTES % (AUTO) 5.4 % (21-51); MEAN CORPUSCULAR HEMOGLOBIN 28.2 PG (27.0-31.0); MEAN CORPUSCULAR HGB CONC 32.4 % (33.0-36.5); MEAN PLATELET VOLUME 8.2 FL (7.4-10.4); MONOCYTES # (AUTO) 0.9 X10'3 (0-0.9); MONOCYTES % (AUTO) 3.2 % (2-12); NEUTROPHILS # (AUTO) 23.9 X10'3 (1.8-7.7); NEUTROPHILS % (AUTO) 89.8 % (42-75); PLATELET COUNT 488 X10'3 (140-440); RED BLOOD COUNT 4.02 X10'6 (4.70-6.10); RED CELL DISTRIBUTION WIDTH 14.7 % (11.5-14.5)
[2017-11-17 14:09] LABS: WHITE BLOOD COUNT 26.6 X10'3 (4.5-11.0)
[2017-11-17 14:40] LABS: PLATELET ESTIMATE INCREASED; TOTAL CELLS COUNTED 100; TOXIC VACUOLATION 2+
[2017-11-17 14:41] LABS: LARGE PLATELETS FEW
[2017-11-17 18:00] VITALS: BP 102/52
[2017-11-17] MEDS: atorvastatin 10mg tablet PO SCH (20:55)
[2017-11-17 21:00] VITALS: BP 97/57
[2017-11-17] MEDS: Insulin Detemir pen SQ SCH (21:00)
[2017-11-17] MEDS: lisinopril 2.5mg tablet PO SCH (21:00)
[2017-11-17 23:00] VITALS: BP 121/67
[2017-11-18] VITALS (37 sets, daily range): BP systolic 48–135; BP diastolic 32–71
[2017-11-18] MEDS: HYDROcodone/acetaminophen 10/325mg tab PO PRN ×3 (00:51→12:06)
[2017-11-18] MEDS: ipratropium 0.5 MG/2.5ML nebule IH SCH ×6 (03:21→23:00)
[2017-11-18] MEDS: furosemide 20MG tablet PO SCH ×2 (07:48→20:00)
[2017-11-18] MEDS: aspirin 325mg tablet PO SCH (07:49)
[2017-11-18] MEDS: levoTHYROXINE 75mcg tablet PO SCH (07:49)
[2017-11-18] MEDS: amiodarone 200mg tablet PO SCH (07:50)
[2017-11-18] MEDS: rivaroxaban 15mg tablet PO SCH ×2 (07:50→20:00)
[2017-11-18] MEDS: pantoprazole 40mg Tablet.DR PO SCH (07:50)
[2017-11-18] MEDS: carvedilol 6.25mg tablet PO SCH ×2 (07:50→20:00)
[2017-11-18] MEDS: ferrous sulfate 325mg tablet PO SCH (07:50)
[2017-11-18] MEDS: methylPREDNISolone sod succ/PF 40mg inj. IV SCH (07:51)
[2017-11-18] MEDS: enoxaparin 50mg/0.5ml (from 3ml vial) syringe SUBCUT SCH ×2 (07:53→20:00)
[2017-11-18 08:40] LABS: HEMATOCRIT 31.8 % (42.0-52.0); HEMOGLOBIN 11.1 g/dl (14.0-17.9); MEAN CORPUSCULAR HEMOGLOBIN 29.4 PG (27.0-31.0); MEAN CORPUSCULAR VOLUME 83.9 FL (78-98); MEAN PLATELET VOLUME 8.1 FL (7.4-10.4); PLATELET COUNT 420 X10'3 (140-440); RED BLOOD COUNT 3.78 X10'6 (4.70-6.10); RED CELL DISTRIBUTION WIDTH 13.9 % (11.5-14.5)
[2017-11-18 08:51] LABS: WHITE BLOOD COUNT 29.8 X10'3 (4.5-11.0)
[2017-11-18 08:56] LABS: ALBUMIN 3.2 G/DL (3.4-5.0); ANION GAP 3 (8-16); BLOOD UREA NITROGEN 29 MG/DL (7-18); BUN/CREATININE RATIO 24.2 (5.4-32.0); CALCIUM 8.8 MG/DL (8.5-10.1); CHLORIDE 97 MMOL/L (99-107); GLUCOSE 129 MG/DL (70-104); SODIUM 137 MMOL/L (135-145); TOTAL CARBON DIOXIDE 36.8 MMOL/L (24-32); eGFR 60 ML/MIN
[2017-11-18 09:09] LABS: TOTAL CELLS COUNTED 100
[2017-11-18 09:10] LABS: PLATELET ESTIMATE NORMAL; POLYCHROMASIA 1+; TOXIC VACUOLATION FEW
[2017-11-18] MEDS ORDERED: CefTRIAXone 2gm/D5W 50ml ADVTG 50 ML IV SCH (10:20)
[2017-11-18] MEDS ORDERED: CefTRIAXone 2gm/NS 100ml IVPB 100 ML IV SCH (11:25)
[2017-11-18] MEDS ORDERED: vancomycin/NS 1 GM ADD-VANTAGE 250 ML IV ONE (13:35)
[2017-11-18] MEDS ORDERED: cefazolin/dext.iso 2gm/50ml 50 ML IV ONE (13:35)
[2017-11-18] MEDS ORDERED: BUPIVAcaine 0.5% inj/PF 0 ML ONE (14:17)
[2017-11-18] MEDS ORDERED: LIDOcaine 1% 30ml vial 0 ML ONE (14:17)
[2017-11-18] MEDS ORDERED: midazolam 2 mg/2 ml injection ONE (15:15)
[2017-11-18] MEDS ORDERED: sevoflurane 250ml liquid IH ONE (15:15)
[2017-11-18] MEDS ORDERED: fentaNYL /PF 50mcg/ml 5ml ampule ONE (15:16)
[2017-11-18] MEDS ORDERED: propofol inj 20 ML IV ONE (15:17)
[2017-11-18] MEDS ORDERED: LIDOcaine 2% (20mg/ml) 5ml vial ONE (15:17)
[2017-11-18] MEDS ORDERED: ringers solution, lacted 1,000 ML IV SCH (16:38)
[2017-11-18] MEDS ORDERED: morphine 2 MG/ML inj. syringe IV PRN ×2 (16:40)
[2017-11-18] MEDS ORDERED: enalaprilat dihydrate 2.5mg/2ml vial IV PRN (16:40)
[2017-11-18] MEDS ORDERED: labetalol 5mg/ml 20ml inj. IV PRN (16:40)
[2017-11-18] MEDS ORDERED: fentaNYL/PF 50MCG/1 ML 2ML syringe IV PRN ×2 (16:40)
[2017-11-18] MEDS ORDERED: ondansetron/PF 4mg/2ml inj IV PRN ×2 (16:40→18:00)
[2017-11-18] MEDS ORDERED: ondansetron/PF 4mg/2ml inj ONE (16:59)
[2017-11-18] MEDS ORDERED: rocuronium 10mg/ml inj IV ONE ×2 (16:59)
[2017-11-18] MEDS ORDERED: glycopyrrolate 0.2mg/ml inj ONE (16:59)
[2017-11-18] MEDS ORDERED: neostigmine methylsulfate 1 MG/ML 10ml vial ONE (16:59)
[2017-11-18] MEDS ORDERED: sodium phosphate inj. 15 MMOL in dextrose 5%-water 150 ML IV PRN (18:00)
[2017-11-18] MEDS ORDERED: potassium Cl 20mEq/100mL bag 100 ML IV PRN ×3 (18:00)
[2017-11-18] MEDS ORDERED: Neutra Phos packet PO PRN (18:00)
[2017-11-18] MEDS ORDERED: sodium phosphate inj. 30 MMOL in dextrose 5%-water 250 ML IV PRN (18:00)
[2017-11-18] MEDS ORDERED: acetaminophen 325mg tablet PO PRN (18:00)
[2017-11-18] MEDS ORDERED: magnesium 4gm in 100ml NS 100 ML IV PRN (18:00)
[2017-11-18] MEDS ORDERED: HYDROcodone/acetaminophen 10/325mg tab PO PRN ×2 (18:00)
[2017-11-18] MEDS ORDERED: magnesium hydroxide 30ml (MOM) UD suspension PO PRN (18:00)
[2017-11-18] MEDS ORDERED: metoclopramide 5 mg/ml inj IV PRN (18:00)
[2017-11-18] MEDS ORDERED: magnesium 2GM in 50ml NS 50 ML IV PRN (18:00)
[2017-11-18 18:41] LABS: BASOPHILS % (AUTO) 0 % (0-1); EOSINOPHILS % (AUTO) 0 % (0-6); HEMOGLOBIN 8.1 g/dl (14.0-17.9); LYMPHOCYTES # (AUTO) 0.8 X10'3 (1.1-4.8); LYMPHOCYTES % (AUTO) 1.5 % (21-51); MEAN CORPUSCULAR HGB CONC 32.4 % (33.0-36.5); MEAN CORPUSCULAR VOLUME 86.5 FL (78-98); MEAN PLATELET VOLUME 7.5 FL (7.4-10.4); MONOCYTES # (AUTO) 0.4 X10'3 (0-0.9); MONOCYTES % (AUTO) 0.8 % (2-12); NEUTROPHILS # (AUTO) 56.4 X10'3 (1.8-7.7); NEUTROPHILS % (AUTO) 97.7 % (42-75); PLATELET COUNT 359 X10'3 (140-440); RED BLOOD COUNT 2.89 X10'6 (4.70-6.10); RED CELL DISTRIBUTION WIDTH 15.2 % (11.5-14.5)
[2017-11-18] MEDS ORDERED: fentaNYL/PF 50MCG/1 ML 2ML syringe ONE (18:50)
[2017-11-18 19:02] LABS: ALANINE AMINOTRANSFERASE 40 U/L (12-78); ALBUMIN 3.1 G/DL (3.4-5.0); ALBUMIN/GLOBULIN RATIO 1.4 (1.1-1.5); ALKALINE PHOSPHATASE 67 IU/L (46-116); ANION GAP 7 (8-16); ASPARTATE AMINO TRANSFERASE 17 U/L (10-37); BILIRUBIN,TOTAL 0.9 MG/DL (0.1-1.0); BLOOD UREA NITROGEN 34 MG/DL (7-18); BUN/CREATININE RATIO 28.3 (5.4-32.0); CHLORIDE 98 MMOL/L (99-107); GLUCOSE 176 MG/DL (70-104); MAGNESIUM 1.9 MG/DL (1.5-2.4); PHOSPHORUS 5.2 MG/DL (2.3-4.5); POTASSIUM 5.2 MMOL/L (3.5-5.1); SODIUM 136 MMOL/L (135-145); TOTAL CARBON DIOXIDE 31.3 MMOL/L (24-32); TOTAL PROTEIN 5.3 G/DL (6.4-8.2); eGFR 60 ML/MIN
[2017-11-18] MEDS: sodium chloride 0.45% 1,000 ML IV SCH (19:07)
[2017-11-18 19:10] LABS: WHITE BLOOD COUNT 57.7 X10'3 (4.5-11.0)
[2017-11-18] MEDS: albumin (Human) 5% 250ml 250 ML IV PRN ×2 (19:34→23:33)
[2017-11-18] MEDS: docusate sod 100mg capsule PO SCH (20:00)
[2017-11-18 20:16] LABS: ABG BASE EXCESS 5.6 mmol/L (-2.0-3.0); ABG HCO3 30.9 mmol/L (22.0-26.0); ABG OXYGEN SATURATION 98.5 % (95-98); ABG PH (T) 7.431 (7.350-7.450); FCOHb 0.3 % (0.5-1.5); FLOW 5 L/min; FMetHb 0.2 % (0.3-1.12); PATIENT TEMPERATURE 35.8; RESPIRATORY RATE (OBSERVED) 16 b/min; TOTAL HEMOGLOBIN 8.1 G/dl (14.0-18.0)
[2017-11-18] MEDS: Insulin Detemir pen SQ SCH (21:00)
[2017-11-18] MEDS: atorvastatin 10mg tablet PO SCH (21:00)
[2017-11-18] MEDS: lisinopril 2.5mg tablet PO SCH (21:00)
[2017-11-18 21:47] LABS: BASOPHILS % (AUTO) 0.1 % (0-1); EOSINOPHILS % (AUTO) 0 % (0-6); LYMPHOCYTES # (AUTO) 1.2 X10'3 (1.1-4.8); LYMPHOCYTES % (AUTO) 2.5 % (21-51); MEAN CORPUSCULAR HEMOGLOBIN 29.1 PG (27.0-31.0); MEAN CORPUSCULAR HGB CONC 33.3 % (33.0-36.5); MEAN CORPUSCULAR VOLUME 87.5 FL (78-98); MEAN PLATELET VOLUME 7.3 FL (7.4-10.4); MONOCYTES # (AUTO) 1.8 X10'3 (0-0.9); MONOCYTES % (AUTO) 3.6 % (2-12); NEUTROPHILS # (AUTO) 46.1 X10'3 (1.8-7.7); NEUTROPHILS % (AUTO) 93.8 % (42-75); PLATELET COUNT 328 X10'3 (140-440); RED CELL DISTRIBUTION WIDTH 14.4 % (11.5-14.5)
[2017-11-18] MEDS: vancomycin/NS 1 GM ADD-VANTAGE 250 ML IV SCH (21:58)
[2017-11-18 21:59] LABS: HEMATOCRIT 17.5 % (42.0-52.0); HEMOGLOBIN 5.8 g/dl (14.0-17.9); WHITE BLOOD COUNT 49.2 X10'3 (4.5-11.0)
[2017-11-18 22:03] LABS: ALANINE AMINOTRANSFERASE 32 U/L (12-78); ALBUMIN 2.9 G/DL (3.4-5.0); ALBUMIN/GLOBULIN RATIO 1.3 (1.1-1.5); ALKALINE PHOSPHATASE 55 IU/L (46-116); ANION GAP 5 (8-16); ASPARTATE AMINO TRANSFERASE 19 U/L (10-37); BILIRUBIN,TOTAL 1.1 MG/DL (0.1-1.0); BLOOD UREA NITROGEN 34 MG/DL (7-18); BUN/CREATININE RATIO 28.3 (5.4-32.0); CALCIUM 7.8 MG/DL (8.5-10.1); CHLORIDE 99 MMOL/L (99-107); GLUCOSE 190 MG/DL (70-104); MAGNESIUM 1.7 MG/DL (1.5-2.4); PHOSPHORUS 5.1 MG/DL (2.3-4.5); SODIUM 137 MMOL/L (135-145); TOTAL CARBON DIOXIDE 33.5 MMOL/L (24-32); TOTAL PROTEIN 5.1 G/DL (6.4-8.2); eGFR 60 ML/MIN
[2017-11-18 22:35] LABS: INR 1.3 INR; PARTIAL THROMBOPLASTIN TIME 38 SECONDS (22-32); PROTHROMBIN TIME 13.4 SECONDS (9.0-12.0)
[2017-11-18] MEDS: morphine 2 MG/ML inj. syringe IV PRN (23:14)
[2017-11-18] MEDS: cefepime 2g/NS 100ml ADVANTAGE 100 ML IV SCH (23:37)
[2017-11-19] VITALS (36 sets, daily range): BP systolic 62–116; BP diastolic 39–70
[2017-11-19] MEDS ORDERED: cefepime 2gm inj IV SCH
[2017-11-19] MEDS ORDERED: cefazolin 1gm/NS 100mL 100 ML IV SCH
[2017-11-19] MEDS: morphine 2 MG/ML inj. syringe IV PRN ×4 (00:20→22:33)
[2017-11-19] MEDS: insulin Lispro (HumaLOG) vial - multi-dose SQ SCH ×4 (02:26→21:09)
[2017-11-19] MEDS: ipratropium 0.5 MG/2.5ML nebule IH SCH ×6 (03:00→23:00)
[2017-11-19] MEDS: albumin (Human) 5% 250ml 250 ML IV PRN ×2 (03:30→16:56)
[2017-11-19 03:52] LABS: BASOPHILS % (AUTO) 0 % (0-1); EOSINOPHILS # (AUTO) 0.7 X10'3 (0-0.9); EOSINOPHILS % (AUTO) 1.9 % (0-6); HEMOGLOBIN 7.2 g/dl (14.0-17.9); LYMPHOCYTES # (AUTO) 1.7 X10'3 (1.1-4.8); LYMPHOCYTES % (AUTO) 4.9 % (21-51); MEAN CORPUSCULAR HEMOGLOBIN 29.8 PG (27.0-31.0); MEAN CORPUSCULAR VOLUME 87.8 FL (78-98); MEAN PLATELET VOLUME 7.9 FL (7.4-10.4); MONOCYTES # (AUTO) 1.5 X10'3 (0-0.9); MONOCYTES % (AUTO) 4.3 % (2-12); NEUTROPHILS # (AUTO) 30.8 X10'3 (1.8-7.7); NEUTROPHILS % (AUTO) 88.9 % (42-75); PLATELET COUNT 223 X10'3 (140-440); RED BLOOD COUNT 2.42 X10'6 (4.70-6.10); RED CELL DISTRIBUTION WIDTH 15.3 % (11.5-14.5)
[2017-11-19 04:02] LABS: HEMATOCRIT 21.2 % (42.0-52.0); WHITE BLOOD COUNT 34.7 X10'3 (4.5-11.0)
[2017-11-19 04:10] LABS: INR 1.3 INR; PARTIAL THROMBOPLASTIN TIME 38 SECONDS (22-32); PROTHROMBIN TIME 13.3 SECONDS (9.0-12.0)
[2017-11-19 04:20] LABS: PLATELET ESTIMATE NORMAL; TOTAL CELLS COUNTED 100
[2017-11-19 04:21] LABS: ANISOCYTOSIS 1+; POLYCHROMASIA FEW
[2017-11-19 04:58] LABS: ALANINE AMINOTRANSFERASE 24 U/L (12-78); ALBUMIN 2.6 G/DL (3.4-5.0); ALBUMIN/GLOBULIN RATIO 1.4 (1.1-1.5); ALKALINE PHOSPHATASE 43 IU/L (46-116); ANION GAP 8 (8-16); ASPARTATE AMINO TRANSFERASE 13 U/L (10-37); BILIRUBIN,TOTAL 2.2 MG/DL (0.1-1.0); BLOOD UREA NITROGEN 42 MG/DL (7-18); BUN/CREATININE RATIO 26.3 (5.4-32.0); CHLORIDE 100 MMOL/L (99-107); GLUCOSE 201 MG/DL (70-104); MAGNESIUM 1.8 MG/DL (1.5-2.4); PHOSPHORUS 5.7 MG/DL (2.3-4.5); POTASSIUM 5.8 MMOL/L (3.5-5.1); SODIUM 136 MMOL/L (135-145); TOTAL CARBON DIOXIDE 28.1 MMOL/L (24-32); TOTAL PROTEIN 4.4 G/DL (6.4-8.2); eGFR 43 ML/MIN
[2017-11-19] MEDS ORDERED: furosemide 40mg/4ml inj IV ONE (05:40)
[2017-11-19] MEDS ORDERED: pantoprazole 40mg Tablet.DR PO SCH (07:30)
[2017-11-19] MEDS: enoxaparin 50mg/0.5ml (from 3ml vial) syringe SUBCUT SCH ×2 (08:00→20:00)
[2017-11-19] MEDS: aspirin 325mg tablet PO SCH (08:00)
[2017-11-19] MEDS ORDERED: atorvastatin 10mg tablet PO SCH (08:00)
[2017-11-19] MEDS: furosemide 20MG tablet PO SCH ×2 (08:00→20:00)
[2017-11-19] MEDS: carvedilol 6.25mg tablet PO SCH ×2 (08:00→20:00)
[2017-11-19] MEDS: rivaroxaban 15mg tablet PO SCH ×2 (08:00→20:00)
[2017-11-19] MEDS: methylPREDNISolone sod succ/PF 40mg inj. IV SCH (08:12)
[2017-11-19] MEDS: docusate sod 100mg capsule PO SCH ×2 (08:12→20:00)
[2017-11-19] MEDS: ferrous sulfate 325mg tablet PO SCH (08:12)
[2017-11-19] MEDS: pantoprazole 40mg Tablet.DR PO SCH (08:13)
[2017-11-19] MEDS: vancomycin/NS 1 GM ADD-VANTAGE 250 ML IV SCH ×2 (08:13→22:32)
[2017-11-19] MEDS: levoTHYROXINE 75mcg tablet PO SCH (08:13)
[2017-11-19] MEDS: cefepime 2g/NS 100ml ADVANTAGE 100 ML IV SCH ×2 (08:13→21:00)
[2017-11-19 08:18] LABS: MEAN CORPUSCULAR HEMOGLOBIN 29.9 PG (27.0-31.0); MEAN CORPUSCULAR HGB CONC 34.3 % (33.0-36.5); MEAN CORPUSCULAR VOLUME 87.2 FL (78-98); PLATELET COUNT 183 X10'3 (140-440); RED BLOOD COUNT 2.35 X10'6 (4.70-6.10); RED CELL DISTRIBUTION WIDTH 14.8 % (11.5-14.5)
[2017-11-19 08:21] LABS: WHITE BLOOD COUNT 26.4 X10'3 (4.5-11.0)
[2017-11-19 08:22] LABS: HEMATOCRIT 20.5 % (42.0-52.0)
[2017-11-19 08:24] LABS: INR 1.3 INR; PARTIAL THROMBOPLASTIN TIME 36 SECONDS (22-32); PROTHROMBIN TIME 13.8 SECONDS (9.0-12.0)
[2017-11-19] MEDS ORDERED: HUMAN PROTHROMBIN COMPLX(PCC) 500 UNIT KIT IV STA (09:08)
[2017-11-19] MEDS ORDERED: tranexamic acid inj. 1,140 MG in normal saline 100ml IV soln 88.6 ML IV ONE (09:20)
[2017-11-19] MEDS: amiodarone 200mg tablet PO SCH (09:39)
[2017-11-19] MEDS ORDERED: MESSAGE TO NURSING PO ONE (10:00)
[2017-11-19 13:41] LABS: HEMATOCRIT 22.4 % (42.0-52.0); HEMOGLOBIN 7.6 g/dl (14.0-17.9); MEAN CORPUSCULAR HEMOGLOBIN 29.9 PG (27.0-31.0); MEAN CORPUSCULAR HGB CONC 34.1 % (33.0-36.5); MEAN CORPUSCULAR VOLUME 87.7 FL (78-98); MEAN PLATELET VOLUME 8.5 FL (7.4-10.4); PLATELET COUNT 166 X10'3 (140-440); RED BLOOD COUNT 2.56 X10'6 (4.70-6.10); RED CELL DISTRIBUTION WIDTH 14.7 % (11.5-14.5); WHITE BLOOD COUNT 24.5 X10'3 (4.5-11.0)
[2017-11-19 13:54] LABS: INR 1.3 INR; PARTIAL THROMBOPLASTIN TIME 31 SECONDS (22-32); PROTHROMBIN TIME 13.6 SECONDS (9.0-12.0)
[2017-11-19] MEDS: HYDROcodone/acetaminophen 10/325mg tab PO PRN (14:02)
[2017-11-19 17:17] LABS: MEAN CORPUSCULAR HGB CONC 34.7 % (33.0-36.5); MEAN CORPUSCULAR VOLUME 86.6 FL (78-98); MEAN PLATELET VOLUME 8.6 FL (7.4-10.4); PLATELET COUNT 144 X10'3 (140-440); RED CELL DISTRIBUTION WIDTH 14.9 % (11.5-14.5)
[2017-11-19 17:18] LABS: WHITE BLOOD COUNT 27.9 X10'3 (4.5-11.0)
[2017-11-19 17:19] LABS: HEMATOCRIT 19.9 % (42.0-52.0); HEMOGLOBIN 6.9 g/dl (14.0-17.9)
[2017-11-19] MEDS: sodium chloride 0.45% 1,000 ML IV SCH (17:51)
[2017-11-19] MEDS: lisinopril 2.5mg tablet PO SCH (20:21)
[2017-11-19] MEDS: atorvastatin 10mg tablet PO SCH (20:23)
[2017-11-19 20:56] LABS: HEMOGLOBIN 7.3 g/dl (14.0-17.9); MEAN CORPUSCULAR HEMOGLOBIN 28.8 PG (27.0-31.0); MEAN CORPUSCULAR HGB CONC 33.2 % (33.0-36.5); MEAN CORPUSCULAR VOLUME 86.6 FL (78-98); MEAN PLATELET VOLUME 8.9 FL (7.4-10.4); PLATELET COUNT 114 X10'3 (140-440); RED BLOOD COUNT 2.52 X10'6 (4.70-6.10); RED CELL DISTRIBUTION WIDTH 15.1 % (11.5-14.5)
[2017-11-19 21:02] LABS: HEMATOCRIT 21.8 % (42.0-52.0); WHITE BLOOD COUNT 31.9 X10'3 (4.5-11.0)
[2017-11-19] MEDS: Insulin Detemir pen SQ SCH (21:10)
[2017-11-19 21:11] LABS: ALBUMIN 2.6 G/DL (3.4-5.0); ANION GAP 8 (8-16); BLOOD UREA NITROGEN 50 MG/DL (7-18); CALCIUM 7.4 MG/DL (8.5-10.1); CHLORIDE 101 MMOL/L (99-107); GLUCOSE 161 MG/DL (70-104); PHOSPHORUS 6.1 MG/DL (2.3-4.5); POTASSIUM 5.8 MMOL/L (3.5-5.1); SODIUM 137 MMOL/L (135-145); TOTAL CARBON DIOXIDE 28.3 MMOL/L (24-32); eGFR 33 ML/MIN
[2017-11-19] MEDS: DOPamine 400mg/D5W 250ml 250 ML IV SCH (21:25)
[2017-11-19] MEDS ORDERED: DOPamine 400mg/D5W 250ml 250 ML IV ONE (21:35)
[2017-11-20] VITALS (30 sets, daily range): BP systolic 80–128; BP diastolic 44–69
[2017-11-20] MEDS: NORepinephrine 8mg/ 250ml NS 250 ML IV SCH ×2 (00:20→18:27)
[2017-11-20] MEDS: HYDROcodone/acetaminophen 10/325mg tab PO PRN ×5 (02:26→23:23)
[2017-11-20] MEDS: ipratropium 0.5 MG/2.5ML nebule IH SCH ×6 (03:16→23:15)
[2017-11-20 04:23] LABS: BASOPHILS % (AUTO) 0 % (0-1); EOSINOPHILS # (AUTO) 0.7 X10'3 (0-0.9); HEMATOCRIT 26.4 % (42.0-52.0); HEMOGLOBIN 8.8 g/dl (14.0-17.9); LYMPHOCYTES # (AUTO) 1.7 X10'3 (1.1-4.8); LYMPHOCYTES % (AUTO) 4.7 % (21-51); MEAN CORPUSCULAR HEMOGLOBIN 28.8 PG (27.0-31.0); MEAN CORPUSCULAR HGB CONC 33.4 % (33.0-36.5); MEAN CORPUSCULAR VOLUME 86.1 FL (78-98); MEAN PLATELET VOLUME 9.1 FL (7.4-10.4); MONOCYTES # (AUTO) 0.9 X10'3 (0-0.9); MONOCYTES % (AUTO) 2.6 % (2-12); NEUTROPHILS # (AUTO) 33.1 X10'3 (1.8-7.7); NEUTROPHILS % (AUTO) 90.7 % (42-75); PLATELET COUNT 127 X10'3 (140-440); RED BLOOD COUNT 3.07 X10'6 (4.70-6.10); RED CELL DISTRIBUTION WIDTH 16.2 % (11.5-14.5)
[2017-11-20 04:26] LABS: WHITE BLOOD COUNT 36.5 X10'3 (4.5-11.0)
[2017-11-20 04:36] LABS: INR 1.3 INR; PARTIAL THROMBOPLASTIN TIME 31 SECONDS (22-32); PROTHROMBIN TIME 13.5 SECONDS (9.0-12.0)
[2017-11-20 04:37] LABS: ALBUMIN 2.9 G/DL (3.4-5.0); ANION GAP 4 (8-16); BLOOD UREA NITROGEN 55 MG/DL (7-18); BUN/CREATININE RATIO 27.5 (5.4-32.0); CALCIUM 7.4 MG/DL (8.5-10.1); CHLORIDE 101 MMOL/L (99-107); GLUCOSE 173 MG/DL (70-104); PHOSPHORUS 4.9 MG/DL (2.3-4.5); POTASSIUM 5.4 MMOL/L (3.5-5.1); SODIUM 136 MMOL/L (135-145); eGFR 33 ML/MIN
[2017-11-20 05:09] LABS: ANISOCYTOSIS 1+; PLATELET ESTIMATE DECREASED; POLYCHROMASIA FEW; TOTAL CELLS COUNTED 100
[2017-11-20] MEDS: levoTHYROXINE 75mcg tablet PO SCH (07:43)
[2017-11-20] MEDS: LACTOBACILLUS RHAMNOSUS GG 15 billion unit sprinkle caps PO SCH ×2 (07:44→17:57)
[2017-11-20] MEDS: methylPREDNISolone sod succ/PF 40mg inj. IV SCH (07:46)
[2017-11-20] MEDS: cefepime 2g/NS 100ml ADVANTAGE 100 ML IV SCH ×2 (07:46→20:47)
[2017-11-20] MEDS: docusate sod 100mg capsule PO SCH ×2 (07:47→20:47)
[2017-11-20] MEDS: aspirin 325mg tablet PO SCH (07:47)
[2017-11-20] MEDS: amiodarone 200mg tablet PO SCH (07:48)
[2017-11-20] MEDS: carvedilol 6.25mg tablet PO SCH ×2 (07:49→20:47)
[2017-11-20] MEDS: furosemide 20MG tablet PO SCH ×2 (07:49→20:47)
[2017-11-20] MEDS: ferrous sulfate 325mg tablet PO SCH (07:49)
[2017-11-20] MEDS: pantoprazole 40mg Tablet.DR PO SCH (07:50)
[2017-11-20] MEDS: insulin Lispro (HumaLOG) vial - multi-dose SQ SCH ×3 (08:49→19:15)
[2017-11-20] MEDS: sodium chloride 0.45% 1,000 ML IV SCH (18:00)
[2017-11-20] MEDS: DOPamine 400mg/D5W 250ml 250 ML IV SCH ×2 (18:25→20:09)
[2017-11-20] MEDS: Protein Smoothie (high protein) 240ml (8oz) cup PO SCH (18:27)
[2017-11-20] MEDS: lisinopril 2.5mg tablet PO SCH (20:41)
[2017-11-20] MEDS: atorvastatin 10mg tablet PO SCH (20:47)
[2017-11-20] MEDS: Insulin Detemir pen SQ SCH (22:45)
[2017-11-21] VITALS (24 sets, daily range): BP systolic 83–118; BP diastolic 46–91
[2017-11-21 02:47] LABS: BASOPHILS % (AUTO) 0 % (0-1); EOSINOPHILS # (AUTO) 0.6 X10'3 (0-0.9); EOSINOPHILS % (AUTO) 1.9 % (0-6); HEMATOCRIT 24.5 % (42.0-52.0); HEMOGLOBIN 8.2 g/dl (14.0-17.9); LYMPHOCYTES # (AUTO) 1.8 X10'3 (1.1-4.8); MEAN CORPUSCULAR HEMOGLOBIN 29.3 PG (27.0-31.0); MEAN CORPUSCULAR HGB CONC 33.5 % (33.0-36.5); MEAN CORPUSCULAR VOLUME 87.4 FL (78-98); MEAN PLATELET VOLUME 8.3 FL (7.4-10.4); MONOCYTES # (AUTO) 1.6 X10'3 (0-0.9); MONOCYTES % (AUTO) 5.5 % (2-12); NEUTROPHILS # (AUTO) 25.5 X10'3 (1.8-7.7); NEUTROPHILS % (AUTO) 86.6 % (42-75); PLATELET COUNT 86 X10'3 (140-440); RED CELL DISTRIBUTION WIDTH 16.6 % (11.5-14.5)
[2017-11-21 03:05] LABS: ALBUMIN 2.7 G/DL (3.4-5.0); ANION GAP 3 (8-16); BLOOD UREA NITROGEN 43 MG/DL (7-18); BUN/CREATININE RATIO 30.7 (5.4-32.0); CALCIUM 7.4 MG/DL (8.5-10.1); CHLORIDE 99 MMOL/L (99-107); GLUCOSE 136 MG/DL (70-104); MAGNESIUM 2.7 MG/DL (1.5-2.4); PHOSPHORUS 2.9 MG/DL (2.3-4.5); POTASSIUM 5.2 MMOL/L (3.5-5.1); SODIUM 134 MMOL/L (135-145); TOTAL CARBON DIOXIDE 31.7 MMOL/L (24-32); eGFR 50 ML/MIN
[2017-11-21 03:16] LABS: WHITE BLOOD COUNT 29.5 X10'3 (4.5-11.0)
[2017-11-21 03:25] LABS: ANISOCYTOSIS 1+; PLATELET ESTIMATE DECREASED; POLYCHROMASIA FEW; TOTAL CELLS COUNTED 100
[2017-11-21] MEDS: ipratropium 0.5 MG/2.5ML nebule IH SCH ×6 (03:25→23:15)
[2017-11-21] MEDS: DOPamine 400mg/D5W 250ml 250 ML IV SCH ×2 (07:31→18:53)
[2017-11-21] MEDS: amiodarone 200mg tablet PO SCH (07:35)
[2017-11-21] MEDS: cefepime 2g/NS 100ml ADVANTAGE 100 ML IV SCH (07:35)
[2017-11-21] MEDS: pantoprazole 40mg Tablet.DR PO SCH (07:35)
[2017-11-21] MEDS: LACTOBACILLUS RHAMNOSUS GG 15 billion unit sprinkle caps PO SCH (07:35)
[2017-11-21] MEDS: furosemide 20MG tablet PO SCH ×2 (07:35→19:33)
[2017-11-21] MEDS: ferrous sulfate 325mg tablet PO SCH (07:35)
[2017-11-21] MEDS: methylPREDNISolone sod succ/PF 40mg inj. IV SCH (07:35)
[2017-11-21] MEDS: docusate sod 100mg capsule PO SCH ×2 (07:35→19:31)
[2017-11-21] MEDS: levoTHYROXINE 75mcg tablet PO SCH (07:35)
[2017-11-21] MEDS: carvedilol 6.25mg tablet PO SCH ×2 (08:00→19:34)
[2017-11-21] MEDS: Protein Smoothie (high protein) 240ml (8oz) cup PO SCH ×3 (08:01→18:41)
[2017-11-21] MEDS: insulin Lispro (HumaLOG) vial - multi-dose SQ SCH ×3 (09:44→21:15)
[2017-11-21] MEDS: HYDROcodone/acetaminophen 10/325mg tab PO PRN ×2 (09:46→18:41)
[2017-11-21] MEDS: aspirin 81mg tablet.DR PO SCH (09:51)
[2017-11-21] MEDS: dabigatran 150mg capsule PO SCH ×2 (09:51→19:31)
[2017-11-21] MEDS: Insulin Detemir pen SQ SCH (21:12)
[2017-11-21] MEDS: lisinopril 2.5mg tablet PO SCH (21:18)
[2017-11-21] MEDS: atorvastatin 10mg tablet PO SCH (21:18)
[2017-11-21] MEDS ORDERED: ciprofloxacin 250mg tablet PO SCH (22:00)
[2017-11-22] VITALS (29 sets, daily range): BP systolic 78–121; BP diastolic 46–74
[2017-11-22] MEDS: HYDROcodone/acetaminophen 10/325mg tab PO PRN ×2 (02:40→12:47)
[2017-11-22 02:42] LABS: BASOPHILS % (AUTO) 0 % (0-1); EOSINOPHILS # (AUTO) 0.4 X10'3 (0-0.9); EOSINOPHILS % (AUTO) 1.7 % (0-6); HEMATOCRIT 24.2 % (42.0-52.0); HEMOGLOBIN 8.1 g/dl (14.0-17.9); LYMPHOCYTES # (AUTO) 1.5 X10'3 (1.1-4.8); LYMPHOCYTES % (AUTO) 5.7 % (21-51); MEAN CORPUSCULAR HEMOGLOBIN 29.8 PG (27.0-31.0); MEAN CORPUSCULAR HGB CONC 33.6 % (33.0-36.5); MEAN CORPUSCULAR VOLUME 88.6 FL (78-98); MEAN PLATELET VOLUME 8.9 FL (7.4-10.4); MONOCYTES # (AUTO) 1.8 X10'3 (0-0.9); NEUTROPHILS # (AUTO) 21.9 X10'3 (1.8-7.7); NEUTROPHILS % (AUTO) 85.6 % (42-75); PLATELET COUNT 87 X10'3 (140-440); RED BLOOD COUNT 2.73 X10'6 (4.70-6.10); RED CELL DISTRIBUTION WIDTH 16.5 % (11.5-14.5)
[2017-11-22 03:02] LABS: ALBUMIN 2.6 G/DL (3.4-5.0); ANION GAP 4 (8-16); BLOOD UREA NITROGEN 34 MG/DL (7-18); BUN/CREATININE RATIO 28.3 (5.4-32.0); CALCIUM 7.8 MG/DL (8.5-10.1); CHLORIDE 99 MMOL/L (99-107); GLUCOSE 178 MG/DL (70-104); MAGNESIUM 2.2 MG/DL (1.5-2.4); PHOSPHORUS 2.6 MG/DL (2.3-4.5); POTASSIUM 5.3 MMOL/L (3.5-5.1); SODIUM 134 MMOL/L (135-145); TOTAL CARBON DIOXIDE 30.6 MMOL/L (24-32); eGFR 60 ML/MIN
[2017-11-22 03:09] LABS: WHITE BLOOD COUNT 25.6 X10'3 (4.5-11.0)
[2017-11-22 03:33] LABS: ANISOCYTOSIS 1+; NUCLEATED RED BLOOD CELLS 1 /100WBC (0-0); PLATELET ESTIMATE DECREASED; TOTAL CELLS COUNTED 100
[2017-11-22 03:34] LABS: POLYCHROMASIA FEW
[2017-11-22] MEDS: ipratropium 0.5 MG/2.5ML nebule IH SCH ×6 (03:50→23:26)
[2017-11-22] MEDS: DOPamine 400mg/D5W 250ml 250 ML IV SCH ×2 (06:15→17:37)
[2017-11-22] MEDS: levoTHYROXINE 75mcg tablet PO SCH (07:34)
[2017-11-22] MEDS: furosemide 20MG tablet PO SCH ×2 (08:00→20:37)
[2017-11-22] MEDS: Protein Smoothie (high protein) 240ml (8oz) cup PO SCH ×3 (08:00→18:00)
[2017-11-22] MEDS: carvedilol 6.25mg tablet PO SCH ×2 (08:00→20:37)
[2017-11-22] MEDS ORDERED: magnesium citrate 296ml oral solution PO ONE (08:45)
[2017-11-22] MEDS: magnesium hydroxide 30ml (MOM) UD suspension PO PRN (09:02)
[2017-11-22] MEDS: docusate sod 100mg capsule PO SCH ×2 (09:03→20:36)
[2017-11-22] MEDS: dabigatran 150mg capsule PO SCH ×2 (09:03→20:37)
[2017-11-22] MEDS: amiodarone 200mg tablet PO SCH (09:03)
[2017-11-22] MEDS: lactobacillus rhamnosus 10,000 MMU CELLS/CAPSULE PO SCH ×2 (09:03→18:29)
[2017-11-22] MEDS: aspirin 81mg tablet.DR PO SCH (09:04)
[2017-11-22] MEDS: pantoprazole 40mg Tablet.DR PO SCH (09:04)
[2017-11-22] MEDS: ferrous sulfate 325mg tablet PO SCH (09:04)
[2017-11-22] MEDS: insulin Lispro (HumaLOG) vial - multi-dose SQ SCH ×2 (09:09→13:50)
[2017-11-22] MEDS ORDERED: furosemide 20 MG/2 ML vial IV ONE (10:05)
[2017-11-22] MEDS: bisacodyl 10mg suppository rectal RC PRN (16:03)
[2017-11-22] MEDS: sodium chloride 0.45% 1,000 ML IV SCH (17:56)
[2017-11-22] MEDS ORDERED: glucagon, human recombinant 1mg kit SUBCUT PRN (19:05)
[2017-11-22] MEDS ORDERED: dextrose ORAL solution 15 GM/59 ML bottle PO PRN ×2 (19:05)
[2017-11-22] MEDS ORDERED: insulin Lispro (HumaLOG) vial - multi-dose SQ SCH (19:05)
[2017-11-22] MEDS ORDERED: dextrose 50%-water 50ml dispensing syringe IV PRN ×2 (19:05)
[2017-11-22] MEDS ORDERED: MESSAGE TO PHARMACY PO ONE (19:05)
[2017-11-22] MEDS: lisinopril 2.5mg tablet PO SCH (20:37)
[2017-11-22] MEDS: atorvastatin 10mg tablet PO SCH (20:37)
[2017-11-22] MEDS: Insulin Detemir pen SQ SCH (20:49)
[2017-11-22] MEDS ORDERED: insulin glargine (Lantus) pen - multi-dose SQ SCH (21:00)
[2017-11-23] VITALS (12 sets, daily range): BP systolic 77–103; BP diastolic 41–65
[2017-11-23] MEDS: HYDROcodone/acetaminophen 10/325mg tab PO PRN ×4 (00:13→19:26)
[2017-11-23 03:27] LABS: MAGNESIUM 2.1 MG/DL (1.5-2.4); PHOSPHORUS 2.8 MG/DL (2.3-4.5); POTASSIUM 5.2 MMOL/L (3.5-5.1)
[2017-11-23] MEDS: DOPamine 400mg/D5W 250ml 250 ML IV SCH (04:59)
[2017-11-23] MEDS ORDERED: potassium Cl 40MEQ/NS 500ml 500 ML IV PRN ×2 (07:25)
[2017-11-23] MEDS ORDERED: potassium Cl 20 mEq SR tablet PO PRN ×2 (07:25)
[2017-11-23] MEDS ORDERED: magnesium Cl slow-release 64mg tablet PO PRN (07:25)
[2017-11-23] MEDS ORDERED: magnesium 4gm in 100ml NS 100 ML IV PRN (07:25)
[2017-11-23] MEDS ORDERED: magnesium 2GM in 50ml NS 50 ML IV PRN (07:25)
[2017-11-23] MEDS: ipratropium 0.5 MG/2.5ML nebule IH SCH (07:53)
[2017-11-23] MEDS: pantoprazole 40mg Tablet.DR PO SCH (08:00)
[2017-11-23] MEDS: carvedilol 6.25mg tablet PO SCH ×2 (08:00→19:26)
[2017-11-23] MEDS: K and/or MAG REPLACEMENT MC SCH (08:00)
[2017-11-23] MEDS: potassium Cl 20 mEq SR tablet PO SCH ×2 (08:00→19:28)
[2017-11-23] MEDS: dabigatran 150mg capsule PO SCH ×2 (08:00→19:26)
[2017-11-23] MEDS: Protein Smoothie (high protein) 240ml (8oz) cup PO SCH ×2 (08:00→09:00)
[2017-11-23] MEDS: ferrous sulfate 325mg tablet PO SCH (08:00)
[2017-11-23] MEDS: furosemide 20MG tablet PO SCH ×2 (08:00→19:26)
[2017-11-23] MEDS: magnesium Cl slow-release 64mg tablet PO SCH ×2 (08:00→19:28)
[2017-11-23] MEDS: amiodarone 200mg tablet PO SCH (09:17)
[2017-11-23] MEDS: aspirin 81mg tablet.DR PO SCH (09:18)
[2017-11-23] MEDS: docusate sod 100mg capsule PO SCH ×2 (09:18→19:26)
[2017-11-23] MEDS: atorvastatin 10mg tablet PO SCH (09:18)
[2017-11-23] MEDS: insulin Lispro (HumaLOG) vial - multi-dose SQ SCH ×3 (10:31→19:35)
[2017-11-23] MEDS: lactobacillus rhamnosus 10,000 MMU CELLS/CAPSULE PO SCH ×2 (10:33→17:30)
[2017-11-23] MEDS: levoTHYROXINE 75mcg tablet PO SCH (10:33)
[2017-11-23] MEDS ORDERED: ipratropium/albuterol 3ml nebule NEB PRN (11:30)
[2017-11-23] MEDS: Insulin Detemir pen SQ SCH (21:00)
[2017-11-23] MEDS: lisinopril 2.5mg tablet PO SCH (22:18)
[2017-11-24] MEDS: HYDROcodone/acetaminophen 10/325mg tab PO PRN ×5 (00:20→21:42)
[2017-11-24 02:00] VITALS: BP 90/55
[2017-11-24 06:14] LABS: BASOPHILS % (AUTO) 0 % (0-1); EOSINOPHILS # (AUTO) 0.7 X10'3 (0-0.9); EOSINOPHILS % (AUTO) 3.6 % (0-6); HEMATOCRIT 29.1 % (42.0-52.0); HEMOGLOBIN 9.9 g/dl (14.0-17.9); LYMPHOCYTES # (AUTO) 2.9 X10'3 (1.1-4.8); LYMPHOCYTES % (AUTO) 14.5 % (21-51); MEAN CORPUSCULAR HEMOGLOBIN 29.9 PG (27.0-31.0); MEAN CORPUSCULAR HGB CONC 34.2 % (33.0-36.5); MEAN CORPUSCULAR VOLUME 87.6 FL (78-98); MEAN PLATELET VOLUME 8.6 FL (7.4-10.4); MONOCYTES # (AUTO) 1.9 X10'3 (0-0.9); MONOCYTES % (AUTO) 9.5 % (2-12); NEUTROPHILS # (AUTO) 14.6 X10'3 (1.8-7.7); NEUTROPHILS % (AUTO) 72.4 % (42-75); PLATELET COUNT 173 X10'3 (140-440); RED BLOOD COUNT 3.32 X10'6 (4.70-6.10); RED CELL DISTRIBUTION WIDTH 16.9 % (11.5-14.5); WHITE BLOOD COUNT 20.2 X10'3 (4.5-11.0)
[2017-11-24 06:42] LABS: ALBUMIN 2.6 G/DL (3.4-5.0); ANION GAP 4 (8-16); BLOOD UREA NITROGEN 32 MG/DL (7-18); BUN/CREATININE RATIO 26.7 (5.4-32.0); CALCIUM 8.2 MG/DL (8.5-10.1); CHLORIDE 97 MMOL/L (99-107); GLUCOSE 99 MG/DL (70-104); POTASSIUM 5.6 MMOL/L (3.5-5.1); SODIUM 133 MMOL/L (135-145); eGFR 60 ML/MIN
[2017-11-24 06:58] LABS: ANISOCYTOSIS 1+; BANDS% (MANUAL) 1 % (0-10); EOSINOPHILS % (MANUAL) 1 % (0-6); LYMPHOCYTES % (MANUAL) 10 % (21-51); METAMYLEOCYTES% (MANUAL) 1 % (0-0); MONOCYTES % (MANUAL) 12 % (2-12); NEUTROPHILS % (MANUAL) 75 % (42-75); NUCLEATED RED BLOOD CELLS 2 /100WBC (0-0); PLATELET ESTIMATE NORMAL; TOTAL CELLS COUNTED 100
[2017-11-24 06:59] LABS: POLYCHROMASIA 1+
[2017-11-24] MEDS: docusate sod 100mg capsule PO SCH ×2 (07:54→20:00)
[2017-11-24] MEDS: lactobacillus rhamnosus 10,000 MMU CELLS/CAPSULE PO SCH ×2 (07:55→17:15)
[2017-11-24] MEDS: ferrous sulfate 325mg tablet PO SCH (07:55)
[2017-11-24] MEDS: aspirin 81mg tablet.DR PO SCH (07:55)
[2017-11-24] MEDS: levoTHYROXINE 75mcg tablet PO SCH (07:56)
[2017-11-24] MEDS: magnesium Cl slow-release 64mg tablet PO SCH ×2 (07:56→20:00)
[2017-11-24] MEDS: furosemide 20MG tablet PO SCH ×2 (07:57→20:00)
[2017-11-24] MEDS: pantoprazole 40mg Tablet.DR PO SCH (07:57)
[2017-11-24] MEDS: amiodarone 200mg tablet PO SCH (07:58)
[2017-11-24] MEDS: potassium Cl 20 mEq SR tablet PO SCH ×2 (07:58→20:00)
[2017-11-24] MEDS: carvedilol 6.25mg tablet PO SCH ×2 (07:58→20:00)
[2017-11-24] MEDS: K and/or MAG REPLACEMENT MC SCH (08:00)
[2017-11-24] MEDS: Protein Smoothie (high protein) 240ml (8oz) cup PO SCH ×3 (08:00→18:00)
[2017-11-24 08:07] VITALS: BP 110/61
[2017-11-24] MEDS: dabigatran 150mg capsule PO SCH ×2 (10:33→20:00)
[2017-11-24 11:00] VITALS: BP 90/45
[2017-11-24 15:00] VITALS: BP 116/59
[2017-11-24] MEDS: insulin Lispro (HumaLOG) vial - multi-dose SQ SCH (15:05)
[2017-11-24 19:00] VITALS: BP 97/56
[2017-11-24] MEDS: Insulin Detemir pen SQ SCH (21:00)
[2017-11-24] MEDS: lisinopril 2.5mg tablet PO SCH (21:43)
[2017-11-24] MEDS: atorvastatin 10mg tablet PO SCH (21:43)
[2017-11-24 22:00] VITALS: BP 94/55
[2017-11-25] MEDS: HYDROcodone/acetaminophen 10/325mg tab PO PRN ×4 (03:01→19:23)
[2017-11-25 06:00] VITALS: BP 92/51
[2017-11-25 06:33] LABS: BASOPHILS % (AUTO) 0.1 % (0-1); EOSINOPHILS # (AUTO) 0.6 X10'3 (0-0.9); EOSINOPHILS % (AUTO) 3.4 % (0-6); HEMATOCRIT 28.5 % (42.0-52.0); HEMOGLOBIN 9.7 g/dl (14.0-17.9); LYMPHOCYTES # (AUTO) 2.3 X10'3 (1.1-4.8); LYMPHOCYTES % (AUTO) 12.7 % (21-51); MEAN CORPUSCULAR HEMOGLOBIN 29.9 PG (27.0-31.0); MEAN CORPUSCULAR VOLUME 87.7 FL (78-98); MEAN PLATELET VOLUME 8.3 FL (7.4-10.4); MONOCYTES # (AUTO) 1.3 X10'3 (0-0.9); MONOCYTES % (AUTO) 7.4 % (2-12); NEUTROPHILS # (AUTO) 13.7 X10'3 (1.8-7.7); NEUTROPHILS % (AUTO) 76.4 % (42-75); PLATELET COUNT 208 X10'3 (140-440); RED BLOOD COUNT 3.25 X10'6 (4.70-6.10); RED CELL DISTRIBUTION WIDTH 16.9 % (11.5-14.5); WHITE BLOOD COUNT 17.9 X10'3 (4.5-11.0)
[2017-11-25 06:44] LABS: ALBUMIN 2.6 G/DL (3.4-5.0); ANION GAP 5 (8-16); BLOOD UREA NITROGEN 26 MG/DL (7-18); BUN/CREATININE RATIO 23.6 (5.4-32.0); CALCIUM 8.2 MG/DL (8.5-10.1); CHLORIDE 98 MMOL/L (99-107); GLUCOSE 111 MG/DL (70-104); MAGNESIUM 1.7 MG/DL (1.5-2.4); POTASSIUM 5.2 MMOL/L (3.5-5.1); SODIUM 135 MMOL/L (135-145); eGFR 66 ML/MIN
[2017-11-25] MEDS: K and/or MAG REPLACEMENT MC SCH (08:00)
[2017-11-25 08:25] LABS: PLATELET ESTIMATE NORMAL
[2017-11-25 08:26] LABS: ANISOCYTOSIS 1+; MICROCYTOSIS 1+
[2017-11-25 08:27] LABS: LARGE PLATELETS FEW; POLYCHROMASIA 2+
[2017-11-25] MEDS: insulin Lispro (HumaLOG) vial - multi-dose SQ SCH ×3 (09:45→19:05)
[2017-11-25] MEDS: levoTHYROXINE 75mcg tablet PO SCH (09:47)
[2017-11-25] MEDS: docusate sod 100mg capsule PO SCH ×2 (09:47→20:01)
[2017-11-25] MEDS: amiodarone 200mg tablet PO SCH (09:48)
[2017-11-25] MEDS: potassium Cl 20 mEq SR tablet PO SCH ×2 (09:48→20:00)
[2017-11-25] MEDS: magnesium Cl slow-release 64mg tablet PO SCH ×2 (09:48→20:01)
[2017-11-25] MEDS: ferrous sulfate 325mg tablet PO SCH (09:48)
[2017-11-25] MEDS: lactobacillus rhamnosus 10,000 MMU CELLS/CAPSULE PO SCH ×2 (09:48→15:26)
[2017-11-25] MEDS: furosemide 20MG tablet PO SCH (09:48)
[2017-11-25] MEDS: aspirin 81mg tablet.DR PO SCH (09:48)
[2017-11-25] MEDS: dabigatran 150mg capsule PO SCH ×2 (09:51→20:01)
[2017-11-25] MEDS: pantoprazole 40mg Tablet.DR PO SCH (09:51)
[2017-11-25] MEDS: carvedilol 6.25mg tablet PO SCH (09:52)
[2017-11-25 11:00] VITALS: BP 74/44
[2017-11-25] MEDS: Protein Smoothie (high protein) 240ml (8oz) cup PO SCH ×3 (13:34→18:01)
[2017-11-25 15:00] VITALS: BP 117/61
[2017-11-25 19:00] VITALS: BP 127/59
[2017-11-25] MEDS: atorvastatin 10mg tablet PO SCH (20:01)
[2017-11-25] MEDS: lisinopril 2.5mg tablet PO SCH (20:04)
[2017-11-25] MEDS: Insulin Detemir pen SQ SCH (21:00)
[2017-11-25 23:00] VITALS: BP 95/51
[2017-11-26] VITALS (7 sets, daily range): BP systolic 96–114; BP diastolic 45–64
[2017-11-26] MEDS: HYDROcodone/acetaminophen 10/325mg tab PO PRN ×4 (00:44→21:09)
[2017-11-26 05:02] LABS: BASOPHILS % (AUTO) 0.3 % (0-1); EOSINOPHILS # (AUTO) 0.4 X10'3 (0-0.9); EOSINOPHILS % (AUTO) 2.6 % (0-6); HEMATOCRIT 27.9 % (42.0-52.0); HEMOGLOBIN 9.3 g/dl (14.0-17.9); LYMPHOCYTES # (AUTO) 2.2 X10'3 (1.1-4.8); LYMPHOCYTES % (AUTO) 13.2 % (21-51); MEAN CORPUSCULAR HEMOGLOBIN 29.6 PG (27.0-31.0); MEAN CORPUSCULAR HGB CONC 33.3 % (33.0-36.5); MEAN CORPUSCULAR VOLUME 88.7 FL (78-98); MEAN PLATELET VOLUME 7.9 FL (7.4-10.4); MONOCYTES # (AUTO) 1.4 X10'3 (0-0.9); MONOCYTES % (AUTO) 8.4 % (2-12); NEUTROPHILS # (AUTO) 12.4 X10'3 (1.8-7.7); NEUTROPHILS % (AUTO) 75.5 % (42-75); PLATELET COUNT 214 X10'3 (140-440); RED BLOOD COUNT 3.15 X10'6 (4.70-6.10); RED CELL DISTRIBUTION WIDTH 17.8 % (11.5-14.5); WHITE BLOOD COUNT 16.5 X10'3 (4.5-11.0)
[2017-11-26 05:47] LABS: ALBUMIN 2.5 G/DL (3.4-5.0); ANION GAP 4 (8-16); BLOOD UREA NITROGEN 24 MG/DL (7-18); CALCIUM 8.1 MG/DL (8.5-10.1); CHLORIDE 97 MMOL/L (99-107); GLUCOSE 111 MG/DL (70-104); MAGNESIUM 1.6 MG/DL (1.5-2.4); POTASSIUM 5.1 MMOL/L (3.5-5.1); SODIUM 132 MMOL/L (135-145); TOTAL CARBON DIOXIDE 31.5 MMOL/L (24-32); eGFR 74 ML/MIN
[2017-11-26] MEDS: potassium Cl 20 mEq SR tablet PO SCH ×2 (07:08→20:00)
[2017-11-26] MEDS: pantoprazole 40mg Tablet.DR PO SCH (07:09)
[2017-11-26] MEDS: lactobacillus rhamnosus 10,000 MMU CELLS/CAPSULE PO SCH ×2 (07:09→16:46)
[2017-11-26] MEDS: docusate sod 100mg capsule PO SCH ×2 (07:09→21:01)
[2017-11-26] MEDS: ferrous sulfate 325mg tablet PO SCH (07:09)
[2017-11-26] MEDS: amiodarone 200mg tablet PO SCH (07:09)
[2017-11-26] MEDS: aspirin 81mg tablet.DR PO SCH (07:09)
[2017-11-26] MEDS: levoTHYROXINE 75mcg tablet PO SCH (07:09)
[2017-11-26] MEDS: furosemide 20MG tablet PO SCH (07:10)
[2017-11-26] MEDS: magnesium Cl slow-release 64mg tablet PO SCH ×2 (07:10→21:03)
[2017-11-26] MEDS: dabigatran 150mg capsule PO SCH ×2 (07:10→21:01)
[2017-11-26] MEDS: K and/or MAG REPLACEMENT MC SCH (07:11)
[2017-11-26] MEDS: Protein Smoothie (high protein) 240ml (8oz) cup PO SCH ×3 (08:21→18:00)
[2017-11-26] MEDS: carvedilol 6.25mg tablet PO SCH ×2 (09:31→21:03)
[2017-11-26 09:50] LABS: PARTIAL THROMBOPLASTIN TIME 39 SECONDS (22-32)
[2017-11-26] MEDS ORDERED: iohexol 350MG/ML 100ml bottle IV ONE (10:14)
[2017-11-26] MEDS: Insulin Detemir pen SQ SCH (21:00)
[2017-11-26] MEDS: lisinopril 2.5mg tablet PO SCH (21:00)
[2017-11-26] MEDS: atorvastatin 10mg tablet PO SCH (21:02)
[2017-11-27] MEDS: HYDROcodone/acetaminophen 10/325mg tab PO PRN ×6 (01:19→23:51)
[2017-11-27 03:00] VITALS: BP 97/56
[2017-11-27 06:00] VITALS: BP 106/52
[2017-11-27 06:36] LABS: BASOPHILS % (AUTO) 0.1 % (0-1); EOSINOPHILS # (AUTO) 0.6 X10'3 (0-0.9); EOSINOPHILS % (AUTO) 3.8 % (0-6); HEMATOCRIT 27.4 % (42.0-52.0); HEMOGLOBIN 9.3 g/dl (14.0-17.9); LYMPHOCYTES # (AUTO) 1.8 X10'3 (1.1-4.8); LYMPHOCYTES % (AUTO) 11.4 % (21-51); MEAN CORPUSCULAR HEMOGLOBIN 29.9 PG (27.0-31.0); MEAN CORPUSCULAR VOLUME 87.9 FL (78-98); MEAN PLATELET VOLUME 8.2 FL (7.4-10.4); MONOCYTES # (AUTO) 1.3 X10'3 (0-0.9); MONOCYTES % (AUTO) 8.2 % (2-12); NEUTROPHILS # (AUTO) 12.3 X10'3 (1.8-7.7); NEUTROPHILS % (AUTO) 76.5 % (42-75); PLATELET COUNT 224 X10'3 (140-440); RED BLOOD COUNT 3.11 X10'6 (4.70-6.10); RED CELL DISTRIBUTION WIDTH 17.9 % (11.5-14.5); WHITE BLOOD COUNT 16.1 X10'3 (4.5-11.0)
[2017-11-27 07:09] LABS: ALBUMIN 2.5 G/DL (3.4-5.0); ANION GAP 6 (8-16); BLOOD UREA NITROGEN 20 MG/DL (7-18); BUN/CREATININE RATIO 22.2 (5.4-32.0); CALCIUM 8.2 MG/DL (8.5-10.1); CHLORIDE 96 MMOL/L (99-107); GLUCOSE 105 MG/DL (70-104); MAGNESIUM 1.6 MG/DL (1.5-2.4); POTASSIUM 5.1 MMOL/L (3.5-5.1); SODIUM 132 MMOL/L (135-145); TOTAL CARBON DIOXIDE 30.3 MMOL/L (24-32); eGFR 83 ML/MIN
[2017-11-27] MEDS: K and/or MAG REPLACEMENT MC SCH (07:36)
[2017-11-27] MEDS: potassium Cl 20 mEq SR tablet PO SCH ×2 (08:00→18:58)
[2017-11-27] MEDS: pantoprazole 40mg Tablet.DR PO SCH (08:35)
[2017-11-27] MEDS: amiodarone 200mg tablet PO SCH (08:35)
[2017-11-27] MEDS: aspirin 81mg tablet.DR PO SCH (08:35)
[2017-11-27] MEDS: lactobacillus rhamnosus 10,000 MMU CELLS/CAPSULE PO SCH ×2 (08:35→17:42)
[2017-11-27] MEDS: furosemide 20MG tablet PO SCH (08:35)
[2017-11-27] MEDS: magnesium Cl slow-release 64mg tablet PO SCH ×2 (08:35→19:31)
[2017-11-27] MEDS: dabigatran 150mg capsule PO SCH ×2 (08:35→19:31)
[2017-11-27] MEDS: carvedilol 6.25mg tablet PO SCH ×2 (08:36→19:39)
[2017-11-27] MEDS: docusate sod 100mg capsule PO SCH ×2 (08:42→19:30)
[2017-11-27] MEDS: ferrous sulfate 325mg tablet PO SCH (08:42)
[2017-11-27] MEDS: levoTHYROXINE 75mcg tablet PO SCH (08:42)
[2017-11-27] MEDS: Protein Smoothie (high protein) 240ml (8oz) cup PO SCH ×3 (08:43→18:56)
[2017-11-27 11:00] VITALS: BP 95/57
[2017-11-27 15:00] VITALS: BP 92/59
[2017-11-27 19:00] VITALS: BP 94/57
[2017-11-27] MEDS: lisinopril 2.5mg tablet PO SCH (21:00)
[2017-11-27] MEDS: Insulin Detemir pen SQ SCH (21:00)
[2017-11-27] MEDS: atorvastatin 10mg tablet PO SCH (21:08)
[2017-11-27 23:00] VITALS: BP 103/53
[2017-11-28] VITALS (7 sets, daily range): BP systolic 93–106; BP diastolic 51–59
[2017-11-28] MEDS: HYDROcodone/acetaminophen 10/325mg tab PO PRN ×4 (04:15→21:36)
[2017-11-28 07:07] LABS: BASOPHILS % (AUTO) 0.2 % (0-1); EOSINOPHILS # (AUTO) 0.6 X10'3 (0-0.9); EOSINOPHILS % (AUTO) 4.1 % (0-6); HEMATOCRIT 29.5 % (42.0-52.0); HEMOGLOBIN 10.1 g/dl (14.0-17.9); LYMPHOCYTES % (AUTO) 13.5 % (21-51); MEAN CORPUSCULAR HEMOGLOBIN 30.1 PG (27.0-31.0); MEAN CORPUSCULAR HGB CONC 34.3 % (33.0-36.5); MEAN PLATELET VOLUME 8.5 FL (7.4-10.4); MONOCYTES # (AUTO) 0.7 X10'3 (0-0.9); MONOCYTES % (AUTO) 4.9 % (2-12); NEUTROPHILS # (AUTO) 11.6 X10'3 (1.8-7.7); NEUTROPHILS % (AUTO) 77.3 % (42-75); PLATELET COUNT 253 X10'3 (140-440); RED BLOOD COUNT 3.35 X10'6 (4.70-6.10); WHITE BLOOD COUNT 15.1 X10'3 (4.5-11.0)
[2017-11-28 07:27] LABS: ALBUMIN 2.9 G/DL (3.4-5.0); ANION GAP 6 (8-16); BLOOD UREA NITROGEN 19 MG/DL (7-18); CALCIUM 8.5 MG/DL (8.5-10.1); CHLORIDE 96 MMOL/L (99-107); GLUCOSE 100 MG/DL (70-104); MAGNESIUM 1.7 MG/DL (1.5-2.4); POTASSIUM 5.1 MMOL/L (3.5-5.1); SODIUM 133 MMOL/L (135-145); TOTAL CARBON DIOXIDE 31.1 MMOL/L (24-32); eGFR 74 ML/MIN
[2017-11-28] MEDS: magnesium Cl slow-release 64mg tablet PO SCH ×2 (07:59→20:43)
[2017-11-28] MEDS: potassium Cl 20 mEq SR tablet PO SCH ×2 (07:59→20:00)
[2017-11-28] MEDS: pantoprazole 40mg Tablet.DR PO SCH (07:59)
[2017-11-28] MEDS: aspirin 81mg tablet.DR PO SCH (08:00)
[2017-11-28] MEDS: dabigatran 150mg capsule PO SCH ×2 (08:00→20:00)
[2017-11-28] MEDS: K and/or MAG REPLACEMENT MC SCH (08:00)
[2017-11-28] MEDS: furosemide 20MG tablet PO SCH (08:01)
[2017-11-28] MEDS: docusate sod 100mg capsule PO SCH ×2 (08:01→20:43)
[2017-11-28] MEDS: amiodarone 200mg tablet PO SCH (08:01)
[2017-11-28] MEDS: ferrous sulfate 325mg tablet PO SCH (08:02)
[2017-11-28] MEDS: levoTHYROXINE 75mcg tablet PO SCH (08:02)
[2017-11-28] MEDS: lactobacillus rhamnosus 10,000 MMU CELLS/CAPSULE PO SCH ×2 (08:02→17:41)
[2017-11-28] MEDS: carvedilol 6.25mg tablet PO SCH ×2 (08:02→20:43)
[2017-11-28] MEDS: Protein Smoothie (high protein) 240ml (8oz) cup PO SCH ×3 (08:54→18:00)
[2017-11-28] MEDS: magnesium hydroxide 30ml (MOM) UD suspension PO PRN (16:23)
[2017-11-28] MEDS: lisinopril 2.5mg tablet PO SCH (20:42)
[2017-11-28] MEDS: atorvastatin 10mg tablet PO SCH (20:42)
[2017-11-28] MEDS: Insulin Detemir pen SQ SCH (21:00)
[2017-11-29] MEDS: HYDROcodone/acetaminophen 10/325mg tab PO PRN ×4 (02:42→21:14)
[2017-11-29 03:00] VITALS: BP 95/50
[2017-11-29 06:00] VITALS: BP 99/60
[2017-11-29 06:22] LABS: BASOPHILS % (AUTO) 0.2 % (0-1); EOSINOPHILS # (AUTO) 0.5 X10'3 (0-0.9); EOSINOPHILS % (AUTO) 3.5 % (0-6); HEMATOCRIT 28.8 % (42.0-52.0); HEMOGLOBIN 9.8 g/dl (14.0-17.9); LYMPHOCYTES % (AUTO) 14.4 % (21-51); MEAN CORPUSCULAR HEMOGLOBIN 29.8 PG (27.0-31.0); MEAN CORPUSCULAR HGB CONC 34.1 % (33.0-36.5); MEAN CORPUSCULAR VOLUME 87.3 FL (78-98); MEAN PLATELET VOLUME 8.2 FL (7.4-10.4); MONOCYTES # (AUTO) 1.1 X10'3 (0-0.9); MONOCYTES % (AUTO) 7.9 % (2-12); NEUTROPHILS # (AUTO) 10.2 X10'3 (1.8-7.7); PLATELET COUNT 255 X10'3 (140-440); WHITE BLOOD COUNT 13.8 X10'3 (4.5-11.0)
[2017-11-29 06:32] LABS: ALBUMIN 2.8 G/DL (3.4-5.0); ANION GAP 6 (8-16); BLOOD UREA NITROGEN 20 MG/DL (7-18); CALCIUM 8.3 MG/DL (8.5-10.1); CHLORIDE 97 MMOL/L (99-107); GLUCOSE 105 MG/DL (70-104); MAGNESIUM 1.7 MG/DL (1.5-2.4); POTASSIUM 5.1 MMOL/L (3.5-5.1); SODIUM 134 MMOL/L (135-145); TOTAL CARBON DIOXIDE 31.5 MMOL/L (24-32); eGFR 74 ML/MIN
[2017-11-29] MEDS: K and/or MAG REPLACEMENT MC SCH (06:46)
[2017-11-29] MEDS: potassium Cl 20 mEq SR tablet PO SCH ×2 (07:14→20:00)
[2017-11-29] MEDS: magnesium Cl slow-release 64mg tablet PO SCH ×2 (07:31→20:48)
[2017-11-29] MEDS: aspirin 81mg tablet.DR PO SCH (07:32)
[2017-11-29] MEDS: amiodarone 200mg tablet PO SCH (07:32)
[2017-11-29] MEDS: ferrous sulfate 325mg tablet PO SCH (07:32)
[2017-11-29] MEDS: lactobacillus rhamnosus 10,000 MMU CELLS/CAPSULE PO SCH ×2 (07:32→16:57)
[2017-11-29] MEDS: levoTHYROXINE 75mcg tablet PO SCH (07:32)
[2017-11-29] MEDS: furosemide 20MG tablet PO SCH (07:32)
[2017-11-29] MEDS: pantoprazole 40mg Tablet.DR PO SCH (07:32)
[2017-11-29] MEDS: dabigatran 150mg capsule PO SCH ×2 (07:32→20:00)
[2017-11-29] MEDS: docusate sod 100mg capsule PO SCH ×2 (07:33→20:48)
[2017-11-29] MEDS: carvedilol 6.25mg tablet PO SCH (08:00)
[2017-11-29] MEDS: Protein Smoothie (high protein) 240ml (8oz) cup PO SCH ×3 (08:00→18:00)
[2017-11-29 11:00] VITALS: BP 127/52
[2017-11-29] MEDS: bisacodyl 10mg suppository rectal RC PRN ×2 (14:21→14:47)
[2017-11-29 15:00] VITALS: BP 119/64
[2017-11-29 18:30] VITALS: BP 90/49
[2017-11-29] MEDS: Insulin Detemir pen SQ SCH (20:50)
[2017-11-29] MEDS: atorvastatin 10mg tablet PO SCH (20:55)
[2017-11-29] MEDS: lisinopril 2.5mg tablet PO SCH (21:10)
[2017-11-29] MEDS ORDERED: carVEDilol 3.125mg tablet PO SCH (21:34)
[2017-11-29] MEDS ORDERED: carVEDilol 3.125mg tablet PO ONE (21:40)
[2017-11-29] MEDS: magnesium hydroxide 30ml (MOM) UD suspension PO PRN (22:26)
[2017-11-29 23:00] VITALS: BP 98/50
[2017-11-30] MEDS: HYDROcodone/acetaminophen 10/325mg tab PO PRN ×3 (02:12→12:47)
[2017-11-30 03:00] VITALS: BP 92/53
[2017-11-30 05:20] LABS: BASOPHILS # (AUTO) 0.1 X10'3 (0-0.2); BASOPHILS % (AUTO) 0.4 % (0-1); EOSINOPHILS # (AUTO) 0.5 X10'3 (0-0.9); EOSINOPHILS % (AUTO) 3.1 % (0-6); HEMATOCRIT 30.3 % (42.0-52.0); HEMOGLOBIN 9.9 g/dl (14.0-17.9); LYMPHOCYTES # (AUTO) 1.6 X10'3 (1.1-4.8); LYMPHOCYTES % (AUTO) 9.2 % (21-51); MEAN CORPUSCULAR HEMOGLOBIN 29.1 PG (27.0-31.0); MEAN CORPUSCULAR HGB CONC 32.8 % (33.0-36.5); MEAN CORPUSCULAR VOLUME 88.7 FL (78-98); MONOCYTES # (AUTO) 1.5 X10'3 (0-0.9); MONOCYTES % (AUTO) 8.4 % (2-12); NEUTROPHILS # (AUTO) 13.9 X10'3 (1.8-7.7); NEUTROPHILS % (AUTO) 78.9 % (42-75); PLATELET COUNT 266 X10'3 (140-440); RED BLOOD COUNT 3.41 X10'6 (4.70-6.10); RED CELL DISTRIBUTION WIDTH 18.5 % (11.5-14.5); WHITE BLOOD COUNT 17.6 X10'3 (4.5-11.0)
[2017-11-30 05:51] LABS: ALBUMIN 2.8 G/DL (3.4-5.0); ANION GAP 3 (8-16); BLOOD UREA NITROGEN 19 MG/DL (7-18); CALCIUM 8.5 MG/DL (8.5-10.1); CHLORIDE 96 MMOL/L (99-107); GLUCOSE 122 MG/DL (70-104); POTASSIUM 4.8 MMOL/L (3.5-5.1); SODIUM 132 MMOL/L (135-145); TOTAL CARBON DIOXIDE 33.5 MMOL/L (24-32); eGFR 74 ML/MIN
[2017-11-30 06:00] VITALS: BP 99/58
[2017-11-30] MEDS: lactobacillus rhamnosus 10,000 MMU CELLS/CAPSULE PO SCH (07:30)
[2017-11-30] MEDS: furosemide 20MG tablet PO SCH (08:00)
[2017-11-30] MEDS: K and/or MAG REPLACEMENT MC SCH (08:00)
[2017-11-30] MEDS: potassium Cl 20 mEq SR tablet PO SCH (08:00)
[2017-11-30] MEDS: dabigatran 150mg capsule PO SCH (08:41)
[2017-11-30] MEDS: magnesium Cl slow-release 64mg tablet PO SCH (08:41)
[2017-11-30] MEDS: levoTHYROXINE 75mcg tablet PO SCH (08:41)
[2017-11-30] MEDS: aspirin 81mg tablet.DR PO SCH (08:43)
[2017-11-30] MEDS: ferrous sulfate 325mg tablet PO SCH (08:43)
[2017-11-30] MEDS: amiodarone 200mg tablet PO SCH (08:43)
[2017-11-30] MEDS: pantoprazole 40mg Tablet.DR PO SCH (08:43)
[2017-11-30] MEDS: docusate sod 100mg capsule PO SCH (08:43)
[2017-11-30] MEDS: Protein Smoothie (high protein) 240ml (8oz) cup PO SCH ×2 (08:47→13:51)
[2017-11-30] MEDS: magnesium hydroxide 30ml (MOM) UD suspension PO PRN (10:33)
[2017-11-30 11:00] VITALS: BP 103/56
== END 2017-11-30 14:45 | DRG 164 ==
LOC: EDSEX → ER 23:46 → ED HOLD 11-12 03:12 → PCU 3S 11-12 07:14 → CICU 2S 11-18 17:39 → PCU 3S 11-23 13:37
PROVIDERS: ADMIT Internal Medicine; ATTEND Thoracic Surgery (Cardiothoracic Vascular Surgery)
PROC: B32T1ZZ Computerized Tomography (CT Scan) of Left Pulmonary Artery using Low Osmolar Contrast (ICD-10-PCS; 2017-11-12)
PROC: B3201ZZ Computerized Tomography (CT Scan) of Thoracic Aorta using Low Osmolar Contrast (ICD-10-PCS; 2017-11-12)
PROC: B32S1ZZ Computerized Tomography (CT Scan) of Right Pulmonary Artery using Low Osmolar Contrast (ICD-10-PCS; 2017-11-12)
PROC: 0PB00ZZ Excision of Sternum, Open Approach (ICD-10-PCS; 2017-11-18)
PROC: 30233N1 Transfusion of Nonautologous Red Blood Cells into Peripheral Vein, Percutaneous Approach (ICD-10-PCS; 2017-11-18)
PROC: 30233R1 Transfusion of Nonautologous Platelets into Peripheral Vein, Percutaneous Approach (ICD-10-PCS; 2017-11-18)
PROC: 30233M1 Transfusion of Nonautologous Plasma Cryoprecipitate into Peripheral Vein, Percutaneous Approach (ICD-10-PCS; 2017-11-18)
PROC: 02HV33Z Insertion of Infusion Device into Superior Vena Cava, Percutaneous Approach (ICD-10-PCS; 2017-11-18)
PROC: B548ZZA Ultrasonography of Superior Vena Cava, Guidance (ICD-10-PCS; 2017-11-18)
PROC: 0PQ00ZZ Repair Sternum, Open Approach (ICD-10-PCS; 2017-11-18)
PROC: 0W9C00Z Drainage of Mediastinum with Drainage Device, Open Approach (ICD-10-PCS; 2017-11-18)
PROC: 0WJC0ZZ Inspection of Mediastinum, Open Approach (ICD-10-PCS; principal; 2017-11-18 15:20)
PROC: 30233L1 Transfusion of Nonautologous Fresh Plasma into Peripheral Vein, Percutaneous Approach (ICD-10-PCS; 2017-11-19)
PROC: 30233K1 Transfusion of Nonautologous Frozen Plasma into Peripheral Vein, Percutaneous Approach (ICD-10-PCS; 2017-11-19)
PROC: B3201ZZ Computerized Tomography (CT Scan) of Thoracic Aorta using Low Osmolar Contrast (ICD-10-PCS; 2017-11-26)
DX: I26.99 Other pulmonary embolism without acute cor pulmonale (principal); N17.9 Acute kidney failure, unspecified; I95.9 Hypotension, unspecified; I11.0 Hypertensive heart disease with heart failure; E87.5 Hyperkalemia; I50.22 Chronic systolic (congestive) heart failure; R13.10 Dysphagia, unspecified; Z99.81 Dependence on supplemental oxygen; T81.32XA Disruption of internal operation (surgical) wound, not elsewhere classified, initial encounter; M54.9 Dorsalgia, unspecified; D64.9 Anemia, unspecified; G89.29 Other chronic pain; J02.9 Acute pharyngitis, unspecified; E11.9 Type 2 diabetes mellitus without complications; E03.9 Hypothyroidism, unspecified; E78.5 Hyperlipidemia, unspecified; I25.10 Atherosclerotic heart disease of native coronary artery without angina pectoris; J44.9 Chronic obstructive pulmonary disease, unspecified; K21.9 Gastro-esophageal reflux disease without esophagitis; S90.821A Blister (nonthermal), right foot, initial encounter; F17.210 Nicotine dependence, cigarettes, uncomplicated; I25.2 Old myocardial infarction; Z95.1 Presence of aortocoronary bypass graft; Z79.01 Long term (current) use of anticoagulants; Z79.899 Other long term (current) drug therapy; Z79.82 Long term (current) use of aspirin; Z71.6 Tobacco abuse counseling
CPT/HCPCS: 0232T; 93306; 96360; 96372; 99285; 36415; 36600; 71045; 71046; 71250; 71275; 80048; 80053; 81001; 81479; 82330; 82803; 82948; 83605; 83735; 83880; 83891; 83894; 83898; 84100; 84132; 84145; 84443; 84484; 85018; 85025; 85027; 85347; 85379; 85384; 85610; 85730; 86140; 86885; 86900; 86901; 86920; 87040; 87070; 87075; 87077; 87102; 93005; 93922; 93970; 94640; 94668; 94760; 97110; 97116; 97162; 97530; A4649; A6213; A6222; A6223; A6251; A6253; A6255; A6257; A6446; A6449; A7000; C1713; C1776; C9132; J0690; J0692; J0696; J1265; J1650; J1815; J1940; J2001; J2250; J2270; J2405; J2704; J2710; J2920; J2930; J3010; J3370; J3475; J3490; J7030; J7120; P9012; P9016; P9035; P9045; P9059; Q9967

== ENCOUNTER 2018-01-19 15:31 | Inpatient (IN) | payer OTHER, MEDICARE ==
[~2018-01-19] VITALS: Ht 5619.3 cm; Wt 90.0 kg
[~2018-01-19 15:31] MED LIST changes: +ACET-2119 PO; +AMIO200T57 PO; +ASPI-1264 PO; -ASPI-611 PO; +ATOR10TA70 PO; +BISA10SU60 RC; +CARV-49 PO; +DOCU100C41 PO; +FURO-150 PO; +HYDR-565 PO; +IPRA3AMP IH; +MAGN400O6 PO; +NA P133E4 RC; -OMEP20TA5 PO; +PANT-47 PO; +PPD ID
[2018-01-19 16:18] LABS: BASOPHILS % (AUTO) 0.1 % (0-1); EOSINOPHILS # (AUTO) 0.3 X10'3 (0-0.9); EOSINOPHILS % (AUTO) 2.1 % (0-6); HEMOGLOBIN 11.6 g/dl (14.0-17.9); LYMPHOCYTES # (AUTO) 1.6 X10'3 (1.1-4.8); LYMPHOCYTES % (AUTO) 12.5 % (21-51); MEAN CORPUSCULAR HEMOGLOBIN 26.3 PG (27.0-31.0); MEAN CORPUSCULAR HGB CONC 33.3 % (33.0-36.5); MEAN CORPUSCULAR VOLUME 78.9 FL (78-98); MONOCYTES # (AUTO) 1.3 X10'3 (0-0.9); MONOCYTES % (AUTO) 10.6 % (2-12); NEUTROPHILS # (AUTO) 9.5 X10'3 (1.8-7.7); NEUTROPHILS % (AUTO) 74.7 % (42-75); PLATELET COUNT 395 X10'3 (140-440); RED BLOOD COUNT 4.43 X10'6 (4.70-6.10); RED CELL DISTRIBUTION WIDTH 19.5 % (11.5-14.5); WHITE BLOOD COUNT 12.7 X10'3 (4.5-11.0)
[2018-01-19 16:28] LABS: CLARITY,URINE CLEAR (Clear); COLOR,URINE YELLOW (Yellow); GLUCOSE, URINE NEGATIVE (Neg); KETONES,URINE NEGATIVE (Neg); LEUKOCYTE ESTERASE ,URINE NEGATIVE (Neg); NITRITES, URINE NEGATIVE (Neg); OCCULT BLOOD,URINE NEGATIVE (Neg); PH,URINE 5.5 (4.8-8.0); PROTEIN,URINE NEGATIVE (Neg); UROBILINOGEN,URINE 0.2 E.U/dL (0.2-1.0)
[2018-01-19 16:29] LABS: UA COLLECTION TYPE URINAL
[2018-01-19] MEDS ORDERED: normal saline 1000ml 1,000 ML IV ONE (16:30)
[2018-01-19 16:32] LABS: INR 1.1 INR; PARTIAL THROMBOPLASTIN TIME 27 SECONDS (22-32); PROTHROMBIN TIME 11.4 SECONDS (9.0-12.0)
[2018-01-19 16:39] LABS: ALANINE AMINOTRANSFERASE 46 U/L (12-78); ALBUMIN 3.4 G/DL (3.4-5.0); ALBUMIN/GLOBULIN RATIO 0.7 (1.1-1.5); ALKALINE PHOSPHATASE 89 IU/L (46-116); ANION GAP 10 (8-16); ASPARTATE AMINO TRANSFERASE 25 U/L (10-37); BILIRUBIN,TOTAL 0.6 MG/DL (0.1-1.0); BLOOD UREA NITROGEN 64 MG/DL (7-18); BUN/CREATININE RATIO 23.2 (5.4-32.0); CALCIUM 9.2 MG/DL (8.5-10.1); CHLORIDE 96 MMOL/L (99-107); CREATININE 2.76 MG/DL (0.60-1.10); GLUCOSE 122 MG/DL (70-104); MAGNESIUM 1.9 MG/DL (1.5-2.4); POTASSIUM 3.2 MMOL/L (3.5-5.1); SODIUM 135 MMOL/L (135-145); TOTAL CARBON DIOXIDE 29.2 MMOL/L (24-32); TOTAL PROTEIN 8.6 G/DL (6.4-8.2); eGFR 23 ML/MIN
[2018-01-19] MEDS: potassium 10mEq/100ml NS w/LIDOcaine (10mg/bag) IV SCH ×2 (18:20→20:55)
[2018-01-19] MEDS ORDERED: vancomycin/NS 1 GM ADD-VANTAGE 250 ML IV ONE (18:35)
[2018-01-19] MEDS ORDERED: levoFLOXACIN-Levaquin 500mg/D5 100 ML IV ONE (18:35)
[2018-01-19] MEDS ORDERED: potassium 10mEq/100ml NS w/LIDOcaine (10mg/bag) IV ONE (20:55)
[2018-01-19] MEDS ORDERED: temazepam 15mg capsule PO PRN (21:00)
[2018-01-19] MEDS ORDERED: mag hydrox/Alum hydrox/simeth 30ml oral suspension PO PRN (22:00)
[2018-01-19] MEDS ORDERED: HYDROcodone/acetaminophen 10/325mg tab PO PRN (22:00)
[2018-01-19] MEDS ORDERED: potassium Cl 20 mEq SR tablet PO PRN ×2 (22:00)
[2018-01-19] MEDS ORDERED: HYDROcodone/acetaminophen 5mg/325mg tablet PO PRN (22:00)
[2018-01-19] MEDS ORDERED: magnesium hydroxide 30ml (MOM) UD suspension PO PRN (22:00)
[2018-01-19] MEDS ORDERED: ipratropium/albuterol 3ml nebule NEB PRN (22:00)
[2018-01-19] MEDS ORDERED: magnesium 2GM in 50ml NS 50 ML IV PRN (22:00)
[2018-01-19] MEDS ORDERED: magnesium Cl slow-release 64mg tablet PO PRN (22:00)
[2018-01-19] MEDS ORDERED: ondansetron/PF 4mg/2ml inj IV PRN (22:00)
[2018-01-19] MEDS ORDERED: potassium Cl 40MEQ/NS 500ml 500 ML IV PRN ×2 (22:00)
[2018-01-19] MEDS ORDERED: acetaminophen 325mg tablet PO PRN (22:00)
[2018-01-19] MEDS ORDERED: albuterol 2.5 MG/3 ML nebule NEB PRN (22:00)
[2018-01-19] MEDS ORDERED: magnesium 4gm in 100ml NS 100 ML IV PRN (22:00)
[2018-01-19] MEDS: potassium Cl 20mEq in NS 1,000 ML IV SCH (22:27)
[2018-01-19 22:30] LABS: HEMOGLOBIN A1C 6.2 % (4.5-6.2)
[2018-01-20] MEDS: piperacillin/tazo 4.5gm/100ml 100 ML IV SCH ×3 (00:53→17:06)
[2018-01-20] MEDS: pantoprazole 40mg Tablet.DR PO SCH (07:30)
[2018-01-20] MEDS: ferrous sulfate 325mg tablet PO SCH (07:30)
[2018-01-20] MEDS: levoTHYROXINE 75mcg tablet PO SCH (07:30)
[2018-01-20] MEDS: amiodarone 200mg tablet PO SCH (07:30)
[2018-01-20] MEDS: aspirin 325mg tablet PO SCH (07:30)
[2018-01-20] MEDS: lactobacillus rhamnosus 10,000 MMU CELLS/CAPSULE PO SCH ×2 (07:30→20:21)
[2018-01-20] MEDS: heparin, porcine 5000 units/ml vial SQ SCH ×2 (07:31→20:19)
[2018-01-20] MEDS: furosemide 20MG tablet PO SCH (07:33)
[2018-01-20] MEDS: carvedilol 6.25mg tablet PO SCH ×2 (07:33→20:21)
[2018-01-20] MEDS: potassium Cl 20mEq in NS 1,000 ML IV SCH ×2 (07:54→14:01)
[2018-01-20] MEDS: K and/or MAG REPLACEMENT MC SCH (08:00)
[2018-01-20] MEDS: loratadine 10mg tablet PO SCH (08:00)
[2018-01-20 08:27] LABS: BASOPHILS # (AUTO) 0.1 X10'3 (0-0.2); BASOPHILS % (AUTO) 0.7 % (0-1); EOSINOPHILS # (AUTO) 0.4 X10'3 (0-0.9); HEMATOCRIT 33.7 % (42.0-52.0); HEMOGLOBIN 11.1 g/dl (14.0-17.9); LYMPHOCYTES # (AUTO) 1.1 X10'3 (1.1-4.8); MEAN CORPUSCULAR HEMOGLOBIN 26.3 PG (27.0-31.0); MEAN CORPUSCULAR HGB CONC 32.9 % (33.0-36.5); MEAN CORPUSCULAR VOLUME 79.8 FL (78-98); MEAN PLATELET VOLUME 7.3 FL (7.4-10.4); MONOCYTES # (AUTO) 0.6 X10'3 (0-0.9); NEUTROPHILS # (AUTO) 7.1 X10'3 (1.8-7.7); NEUTROPHILS % (AUTO) 76.3 % (42-75); PLATELET COUNT 341 X10'3 (140-440); RED BLOOD COUNT 4.22 X10'6 (4.70-6.10); RED CELL DISTRIBUTION WIDTH 19.2 % (11.5-14.5); WHITE BLOOD COUNT 9.3 X10'3 (4.5-11.0)
[2018-01-20 08:55] LABS: ALANINE AMINOTRANSFERASE 39 U/L (12-78); ALBUMIN/GLOBULIN RATIO 0.7 (1.1-1.5); ALKALINE PHOSPHATASE 69 IU/L (46-116); ANION GAP 12 (8-16); ASPARTATE AMINO TRANSFERASE 21 U/L (10-37); BILIRUBIN,TOTAL 0.8 MG/DL (0.1-1.0); BLOOD UREA NITROGEN 50 MG/DL (7-18); BUN/CREATININE RATIO 28.2 (5.4-32.0); CALCIUM 8.6 MG/DL (8.5-10.1); CHLORIDE 98 MMOL/L (99-107); CHOLESTEROL 141 MG/DL (0-200); CREATININE 1.77 MG/DL (0.60-1.10); GLUCOSE 106 MG/DL (70-104); HDL CHOLESTEROL 28 MG/DL (35-60); LDL CHOLESTEROL 87 MG/DL (50-100); MAGNESIUM 1.5 MG/DL (1.5-2.4); POTASSIUM 3.6 MMOL/L (3.5-5.1); SODIUM 135 MMOL/L (135-145); TOTAL CARBON DIOXIDE 25.5 MMOL/L (24-32); TOTAL PROTEIN 7.6 G/DL (6.4-8.2); TRIGLYCERIDES 158 MG/DL (20-135); eGFR 38 ML/MIN
[2018-01-20] MEDS ORDERED: magnesium hydroxide 30ml (MOM) UD suspension PO PRN (14:25)
[2018-01-20] MEDS: docusate sod 100mg capsule PO SCH (20:00)
[2018-01-20] MEDS: atorvastatin 10mg tablet PO SCH (20:21)
[2018-01-20 21:00] VITALS: BP 127/74
[2018-01-20] MEDS ORDERED: SIMVASTATIN PO SCH (21:00)
[2018-01-20 22:00] VITALS: BP_SYST 106; BP_SYST 119; BP_SYST 122; BP_DIAS 69; BP_DIAS 72; BP_DIAS 75
[2018-01-21] VITALS: BP 116/65
[2018-01-21] MEDS ORDERED: piperacillin/tazo 4.5gm/100ml 100 ML IV ONE (00:11)
[2018-01-21] MEDS: potassium Cl 20mEq in NS 1,000 ML IV SCH ×3 (00:19→23:11)
[2018-01-21] MEDS: piperacillin/tazo 4.5gm/100ml 100 ML IV SCH ×2 (00:19→08:44)
[2018-01-21 05:57] LABS: BASOPHILS # (AUTO) 0.1 X10'3 (0-0.2); BASOPHILS % (AUTO) 0.8 % (0-1); EOSINOPHILS # (AUTO) 0.6 X10'3 (0-0.9); EOSINOPHILS % (AUTO) 6.4 % (0-6); HEMATOCRIT 31.6 % (42.0-52.0); HEMOGLOBIN 10.3 g/dl (14.0-17.9); LYMPHOCYTES # (AUTO) 1.5 X10'3 (1.1-4.8); MEAN CORPUSCULAR HGB CONC 32.5 % (33.0-36.5); MEAN PLATELET VOLUME 7.4 FL (7.4-10.4); MONOCYTES # (AUTO) 0.9 X10'3 (0-0.9); NEUTROPHILS # (AUTO) 5.7 X10'3 (1.8-7.7); NEUTROPHILS % (AUTO) 65.8 % (42-75); PLATELET COUNT 325 X10'3 (140-440); RED BLOOD COUNT 3.96 X10'6 (4.70-6.10); RED CELL DISTRIBUTION WIDTH 19.1 % (11.5-14.5); WHITE BLOOD COUNT 8.6 X10'3 (4.5-11.0)
[2018-01-21 07:01] LABS: ALANINE AMINOTRANSFERASE 38 U/L (12-78); ALBUMIN 3.1 G/DL (3.4-5.0); ALBUMIN/GLOBULIN RATIO 0.7 (1.1-1.5); ALKALINE PHOSPHATASE 67 IU/L (46-116); ANION GAP 11 (8-16); ASPARTATE AMINO TRANSFERASE 22 U/L (10-37); BILIRUBIN,TOTAL 0.5 MG/DL (0.1-1.0); BLOOD UREA NITROGEN 28 MG/DL (7-18); BUN/CREATININE RATIO 20.1 (5.4-32.0); CALCIUM 8.8 MG/DL (8.5-10.1); CHLORIDE 98 MMOL/L (99-107); CREATININE 1.39 MG/DL (0.60-1.10); GLUCOSE 102 MG/DL (70-104); MAGNESIUM 1.6 MG/DL (1.5-2.4); POTASSIUM 3.6 MMOL/L (3.5-5.1); SODIUM 133 MMOL/L (135-145); TOTAL CARBON DIOXIDE 24.5 MMOL/L (24-32); TOTAL PROTEIN 7.7 G/DL (6.4-8.2); eGFR 51 ML/MIN
[2018-01-21 07:49] VITALS: BP 113/62
[2018-01-21] MEDS: K and/or MAG REPLACEMENT MC SCH (08:00)
[2018-01-21] MEDS: docusate sod 100mg capsule PO SCH ×2 (08:00→20:00)
[2018-01-21] MEDS: aspirin 325mg tablet PO SCH (08:45)
[2018-01-21] MEDS: amiodarone 200mg tablet PO SCH (08:45)
[2018-01-21] MEDS: loratadine 10mg tablet PO SCH (08:45)
[2018-01-21] MEDS: ferrous sulfate 325mg tablet PO SCH (08:45)
[2018-01-21] MEDS: multivitamins, therapeutics tablet PO SCH (08:45)
[2018-01-21] MEDS: vitamin D (cholecalciferol) 1,000 unit tablet PO SCH (08:46)
[2018-01-21] MEDS: lactobacillus rhamnosus 10,000 MMU CELLS/CAPSULE PO SCH ×2 (08:46→20:03)
[2018-01-21] MEDS: furosemide 20MG tablet PO SCH (08:46)
[2018-01-21] MEDS: carvedilol 6.25mg tablet PO SCH ×2 (08:47→20:03)
[2018-01-21] MEDS: levoTHYROXINE 75mcg tablet PO SCH (08:47)
[2018-01-21] MEDS: pantoprazole 40mg Tablet.DR PO SCH (08:47)
[2018-01-21] MEDS: heparin, porcine 5000 units/ml vial SQ SCH ×2 (08:48→20:04)
[2018-01-21 12:36] VITALS: BP 100/92
[2018-01-21 12:41] VITALS: BP_SYST 100; BP_SYST 91; BP_SYST 92; BP_DIAS 52; BP_DIAS 56
[2018-01-21] MEDS: amox tr/potassium clavulanate 875/125mg TAB PO SCH (17:39)
[2018-01-21 18:00] VITALS: BP 111/60
[2018-01-21] MEDS: atorvastatin 10mg tablet PO SCH (20:03)
[2018-01-21] MEDS ORDERED: lisinopril 2.5mg tablet PO SCH (21:00)
[2018-01-21 23:30] VITALS: BP 103/55
[2018-01-22 05:15] LABS: BASOPHILS # (AUTO) 0.1 X10'3 (0-0.2); BASOPHILS % (AUTO) 0.7 % (0-1); EOSINOPHILS # (AUTO) 0.4 X10'3 (0-0.9); EOSINOPHILS % (AUTO) 5.5 % (0-6); HEMATOCRIT 30.8 % (42.0-52.0); HEMOGLOBIN 10.1 g/dl (14.0-17.9); LYMPHOCYTES # (AUTO) 1.7 X10'3 (1.1-4.8); LYMPHOCYTES % (AUTO) 21.6 % (21-51); MEAN CORPUSCULAR HGB CONC 32.9 % (33.0-36.5); MEAN PLATELET VOLUME 7.4 FL (7.4-10.4); MONOCYTES # (AUTO) 0.9 X10'3 (0-0.9); MONOCYTES % (AUTO) 11.8 % (2-12); NEUTROPHILS # (AUTO) 4.8 X10'3 (1.8-7.7); NEUTROPHILS % (AUTO) 60.4 % (42-75); PLATELET COUNT 299 X10'3 (140-440); RED BLOOD COUNT 3.89 X10'6 (4.70-6.10); RED CELL DISTRIBUTION WIDTH 19.4 % (11.5-14.5)
[2018-01-22 05:34] LABS: ALANINE AMINOTRANSFERASE 41 U/L (12-78); ALBUMIN/GLOBULIN RATIO 0.7 (1.1-1.5); ALKALINE PHOSPHATASE 67 IU/L (46-116); ANION GAP 9 (8-16); ASPARTATE AMINO TRANSFERASE 25 U/L (10-37); BILIRUBIN,TOTAL 0.4 MG/DL (0.1-1.0); BLOOD UREA NITROGEN 15 MG/DL (7-18); BUN/CREATININE RATIO 13.5 (5.4-32.0); CALCIUM 8.8 MG/DL (8.5-10.1); CHLORIDE 99 MMOL/L (99-107); CREATININE 1.11 MG/DL (0.60-1.10); GLUCOSE 94 MG/DL (70-104); MAGNESIUM 1.3 MG/DL (1.5-2.4); POTASSIUM 3.8 MMOL/L (3.5-5.1); SODIUM 133 MMOL/L (135-145); TOTAL CARBON DIOXIDE 25.2 MMOL/L (24-32); TOTAL PROTEIN 7.5 G/DL (6.4-8.2); eGFR 65 ML/MIN
[2018-01-22] MEDS: docusate sod 100mg capsule PO SCH (08:00)
[2018-01-22] MEDS: K and/or MAG REPLACEMENT MC SCH (08:00)
[2018-01-22 08:19] VITALS: BP 132/50
[2018-01-22] MEDS: loratadine 10mg tablet PO SCH (09:26)
[2018-01-22] MEDS: aspirin 325mg tablet PO SCH (09:26)
[2018-01-22] MEDS: amiodarone 200mg tablet PO SCH (09:27)
[2018-01-22] MEDS: multivitamins, therapeutics tablet PO SCH (09:27)
[2018-01-22] MEDS: carvedilol 6.25mg tablet PO SCH (09:27)
[2018-01-22] MEDS: lactobacillus rhamnosus 10,000 MMU CELLS/CAPSULE PO SCH (09:27)
[2018-01-22] MEDS: levoTHYROXINE 75mcg tablet PO SCH (09:28)
[2018-01-22] MEDS: pantoprazole 40mg Tablet.DR PO SCH (09:28)
[2018-01-22] MEDS: amox tr/potassium clavulanate 875/125mg TAB PO SCH (09:28)
[2018-01-22] MEDS: ferrous sulfate 325mg tablet PO SCH (09:28)
[2018-01-22] MEDS: furosemide 20MG tablet PO SCH (09:28)
[2018-01-22] MEDS: heparin, porcine 5000 units/ml vial SQ SCH (09:29)
[2018-01-22] MEDS: vitamin D (cholecalciferol) 1,000 unit tablet PO SCH (09:29)
[2018-01-22] MEDS: potassium Cl 20mEq in NS 1,000 ML IV SCH (10:09)
[2018-01-22 11:30] VITALS: BP 107/58
[2018-01-22] MEDS ORDERED: CARV3.122 PO (12:52)
== END 2018-01-22 14:49 | disposition home or self-care (01) | DRG 315 ==
LOC: ER 15:31 → ED HOLD 22:06 → SUR 3N 01-20 20:55
PROVIDERS: ADMIT Internal Medicine; ATTEND Family Medicine
DX: I95.9 Hypotension, unspecified (principal); N17.9 Acute kidney failure, unspecified; E11.22 Type 2 diabetes mellitus with diabetic chronic kidney disease; K61.3 Ischiorectal abscess; I13.0 Hypertensive heart and chronic kidney disease with heart failure and stage 1 through stage 4 chronic kidney disease, or unspecified chronic kidney disease; I08.1 Rheumatic disorders of both mitral and tricuspid valves; I50.22 Chronic systolic (congestive) heart failure; I27.20 Pulmonary hypertension, unspecified; E87.6 Hypokalemia; E86.0 Dehydration; D64.9 Anemia, unspecified; F10.21 Alcohol dependence, in remission; D72.829 Elevated white blood cell count, unspecified; E03.9 Hypothyroidism, unspecified; E78.5 Hyperlipidemia, unspecified; I25.10 Atherosclerotic heart disease of native coronary artery without angina pectoris; I25.5 Ischemic cardiomyopathy; J44.9 Chronic obstructive pulmonary disease, unspecified; K21.9 Gastro-esophageal reflux disease without esophagitis; L05.91 Pilonidal cyst without abscess; N18.9 Chronic kidney disease, unspecified; I25.2 Old myocardial infarction; Z95.1 Presence of aortocoronary bypass graft; Z79.82 Long term (current) use of aspirin; Z79.899 Other long term (current) drug therapy; Z87.891 Personal history of nicotine dependence; Z86.711 Personal history of pulmonary embolism
CPT/HCPCS: 36415; 71045; 71250; 74176; 76857; 78582; 80053; 80061; 81003; 82948; 83036; 83605; 83735; 84145; 84439; 84443; 85025; 85610; 85730; 87040; 87070; 93005; 93306; 94760; 96365; 96366; 96368; 99285; A9539; A9540; J1644; J1956; J2543; J3370; J3480; J7030